=== PATIENT | female | born 1990 | race Caucasian/White ===

== ENCOUNTER 2023-01-10 18:20 | Emergency (ER) | payer OTHER, SELFPAY ==
[2023-01-10] VITALS (12 sets, daily range): BP systolic 106–125; BP diastolic 59–72; PULSE 55–64; RESP 16; TEMP 36.5; O2SAT 96–100; BMI 25.0
--- NOTE | 2023-01-10 18:48 | CRLHL7_ITS ---
For Patients: As a result of the Century Cures Act, medical imaging exams and procedure reports are released immediately into your electronic medical record. You may view this report before your referring provider. If you have questions, please contact your health care provider. Indication: Chest pain. Technique: Chest 2 views. Comparison: None available. FINDINGS: The cardiomediastinal silhouette size is normal. There is no focal pulmonary opacity, pleural effusion or pneumothorax. The visualized osseous structures are unremarkable for age. Impression: No acute cardiopulmonary abnormality. Dictated by Pam Meade MD @ 01/10/2023 7:47:39 PM (Electronically Signed)
--- NOTE | 2023-01-10 18:54 | ED_ITS ---
HPI - Chest Pain General Date Seen: 01/10/23 Chief Complaint: Chest Pain Stated Complaint: Pain in L side of chest and ribcage Time Seen by Provider: 01/10/23 18:22 Source: patient and family Mode of arrival: ambulatory Limitations: no limitations History of Present Illness HPI narrative: Patient is a very nice 32-year-old female presents here for evaluation of chest pain that she has had on her left side of her chest, she has had this since morning this morning at approximately 8:30 a.m. and developed while she was driving her car to work. She develops that intermittently, the longus. It has been continuous has been 5 minutes, she developed sharp with some radiation to her back, she does not really know what brings it on sometimes movement, pressure does seem to help this over the area, this did not come on with a coughing jag, she feels some mild shortness of breath with this. Has had non of her tachycardia which is another issue that she has. She does have a history of sinus tachycardia with the most rapid rate being 120, since she has been on beta-blockers this is helped considerably. She has no personal other history of any heart issues. Does not feel like she is going to pass out, no nausea vomiting, eating and drinking otherwise normally. No history of pulmonary emboli, DVTs, no family history of such or blood dyscrasias. She does smoke, occasionally mostly vapes, no use of any illicit drugs, denies hypertension, hyperlipidemia, diabetes, does have a family history of coronary artery disease in her elderly family, complaint: chest pain Onset (ago): hour(s) Timing of current episode: episodic Prior episodes: No Pain location: left chest Pain radiation: left scapula Quality: sharp Relieving factors: nothing Treatment prior to arrival: none Risk Factors Thoracic aortic dissection risk factors: none Related Data On Oral Contraceptives: No Home Medications Medication Instructions Recorded Confirmed fluticasone propion-salmeterol inhalation 01/10/23 metoprolol tartrate 50 mg tablet 50 mg PO BID 01/10/23 01/10/23 Allergies Allergy/AdvReac Type Severity Reaction Status Date / Time codeine Allergy Unknown Verified 01/10/23 18:33 Review of Systems Status of ROS Reports: 10 or more systems reviewed and unremarkable except as noted in History and below Exam Narrative Exam Narrative: Patient is seen in room 6, she is in no apparent distress, speaking to me normally, she currently does not have chest pain, pupils are equal round reactive to light there is no scleral icterus redness TMs are normal oropharynx normal, neck is supple, full range of motion, JVP is flat, carotid upstrokes are equal bilaterally cranial nerves 3-12 are normal, her chest is good air entry bilaterally with absence of wheezes crackles noted. No signs of respiratory distress, heart sounds no clicks murmurs or gallops are noted, her abdomen is scaphoid, there is no tenderness to palpation, no right upper quadrant or any organomegaly is seen. Or felt. Bowel sounds are normal no CVA tenderness, no bruising noted over back, her thoracic region palpates normally. Lower extremity show no pitting edema or swelling, normal muscle bulk noted bilaterally. Pulses are normal Const Vital Signs, click to edit/add: Vital Signs - 24 hr 01/10/23 18:27 01/10/23 18:40 01/10/23 18:41 Temperature 97.7 F Pulse Rate 61 60 Pulse Rate [Pulse Oximeter] 62 Respiratory Rate 16 Blood Pressure 125/72 Blood Pressure [Right Upper Arm] 106/59 L Pulse Oximetry 96 100 100 Oxygen Delivery Method Room Air 01/10/23 18:45 01/10/23 19:00 01/10/23 19:02 Temperature Pulse Rate 64 58 L 60 Pulse Rate [Pulse Oximeter] Respiratory Rate Blood Pressure 118/59 L Blood Pressure [Right Upper Arm] Pulse Oximetry 100 100 100 Oxygen Delivery Method 01/10/23 19:15 Temperature Pulse Rate 59 L Pulse Rate [Pulse Oximeter] Respiratory Rate Blood Pressure Blood Pressure [Right Upper Arm] Pulse Oximetry 100 Oxygen Delivery Method Course Course Hospital Course: discussed with the patient, her chest x-ray by my review looks normal, waiting radiological over-read. His D-dimer was negative, troponin negative, in the setting that she has had this chest pain now intermittently for almost 12 hours. Remainder of her blood tests are normal, I do believe this is likely musculoskeletal the other possibility would be a touch of pleurisy, with the tends to be more with breathing. I do not think this is pulmonary embolism is her PERC score is very low. At this point I think discharge would be indicated, use of ibuprofen, and I discussed use of Toradol with her. Vital Signs Vital signs: Initial Vital Signs Temperature 97.7 F 01/10/23 18:27 Temperature Source Temporal Artery Scan 01/10/23 18:27 Pulse Rate 62 01/10/23 18:27 Respiratory Rate 16 01/10/23 18:27 Blood Pressure 106/59 L 01/10/23 18:27 Blood Pressure Mean 74 01/10/23 18:27 Blood Pressure Position Sitting 01/10/23 18:27 Pulse Oximetry 96 01/10/23 18:27 Oxygen Delivery Method Room Air 01/10/23 18:27 Vital Signs Temperature 97.7 F 01/10/23 18:27 Pulse Rate 62 01/10/23 18:27 Respiratory Rate 16 01/10/23 18:27 Blood Pressure 106/59 L 01/10/23 18:27 Pulse Oximetry 96 01/10/23 18:27 Oxygen Delivery Method Room Air 01/10/23 18:27 Temperature 97.7 F 01/10/23 18:27 Pulse Rate 59 L 01/10/23 19:15 Respiratory Rate 16 01/10/23 18:27 Blood Pressure 118/59 L 01/10/23 19:02 Pulse Oximetry 100 01/10/23 19:15 Oxygen Delivery Method Room Air 01/10/23 18:27 MDM - Chest Pain MDM Narrative Medical decision making narrative: During the evaluation of this patient I considered multiple differential diagnosis is. The life-threatening differential diagnosis include coronary disease/[place], pulmonary embolism, pneumothorax, pneumonia, and aortic dissection. Other differential diagnosis included but were not limited to pericarditis, myocarditis, chest wall pain, GERD, esophageal rupture, rib fracture contusion, pleurisy, as well as other etiologies. Medical Records Data Attestation: I reviewed the patient's medical records. Lab Data Attestation: I reviewed the patient's lab results. Labs: Lab Results 01/10/23 01/10/23 Range/Units 18:50 19:00 WBC 7.60 (4.50-11.00) K/uL RBC 4.48 (4.00-5.20) m/uL Hgb 13.0 (12.0-16.0) gm/dL Hct 39.5 (33.0-51.0) % MCV 88 (80-100) fL MCH 29 (26-34) pg MCHC 33 (32-36) gm/dL RDW Coeff of Lalo 11.7 (11.5-15.5) % Plt Count 245 (140-440) K/uL Neut % (Auto) 61.1 (42.0-72.0) % Lymph % (Auto) 28.4 (20-44) % [place] % (Auto) 8.2 (0.0-11.0) % Eos % (Auto) 1.7 (0.0-7.0) % Baso % (Auto) 0.3 (0.0-3.0) % Neut # (Auto) 4.65 (1.7-7.0) K/uL Lymph # (Auto) 2.16 (0.90-2.90) K/uL [place] # (Auto) 0.60 (0.00-0.90) K/UL Eos # (Auto) 0.13 (0.00-0.50) K/uL Baso # (Auto) 0.02 (0.00-0.30) K/uL Abs Immat Gran (auto) 0.02 (0.00-0.30) K/uL Imm/Tot Granulo (auto) 0.3 % INR 0.98 (0.91-1.10) APTT 31 (23-33) Seconds D-Dimer Quant (PE/DVT) 0.47 (0.00-0.50) ug/ml Sodium 138 (135-149) mmol/L Potassium 3.7 (3.6-5.1) mmol/L Chloride 104 (96-114) mmol/L Carbon Dioxide 25 (20-32) mmol/L BUN 12 (5-24) mg/dL Creatinine 0.8 (0.5-1.5) mg/dL Estimated Creat Clear 91.68 Estimated GFR 101 ml/min Glucose 81 (60-115) mg/dL Calcium 9.0 (8.4-10.6) mg/dL POC Troponin I 0.00 L (0.01-0.04) ng/ml Imaging Data Chest x-ray: Attestation: I have reviewed the pertinent imaging results. My impression: Chest x-ray is negative for pneumothorax or acute findings per my review. Radiological over-read pending ECG Data Attestation: I personally reviewed and interpreted this ECG as follows: ECG interpretation date: 01/10/23 Prior ECG tracings: not available for review Interpretation: EKG shows normal sinus rhythm, sinus bradycardia [address] wave changes, normal intervals, Discharge Plan Discharge Clinical Impression: Chest pain Patient Disposition: Home w/ Parent or Adult Condition: Stable Instructions: Chest Pain (DC) Additional Instructions: Laboratory tests are negative, this is very reassuring, I wonder if this is more of a musculoskeletal, muscle issue, use of nonsteroidal anti-inflammatory drugs such as Aleve ibuprofen, are suggested, as I think there may be a touch of pleurisy. Follow-up with primary care if ongoing symptoms, Activity Level: Light activity Prescriptions: No Action metoprolol tartrate 50 mg tablet 50 mg PO BID fluticasone propion-salmeterol [Advair HFA] inhalation Stand Alone Forms: [email or web address] Info Instructions
[2023-01-10 19:12] LABS: Basophils Absolute Auto 0.02 K/uL (0.00-0.30); Basophils Percent Auto 0.3 % (0.0-3.0); Eosinophils Absolute Auto 0.13 K/uL (0.00-0.50); Eosinophils Percent Auto 1.7 % (0.0-7.0); Hematocrit 39.5 % (33.0-51.0); Immature Granulocytes Abs Auto 0.02 K/uL (0.00-0.30); Immature Granulocytes Pct Auto 0.3 %; Lymphocytes Absolute Auto 2.16 K/uL (0.90-2.90); Lymphocytes Percent Auto 28.4 % (20-44); Mean Corpuscular HGB Conc 33 gm/dL (32-36); Mean Corpuscular Hemoglobin 29 pg (26-34); Mean Corpuscular Volume 88 fL (80-100); Monocytes Percent Auto 8.2 % (0.0-11.0); Neutrophils Absolute Auto 4.65 K/uL (1.7-7.0); Neutrophils Percent Auto 61.1 % (42.0-72.0); Platelet Count* 245 K/uL (140-440); RDW Coefficient of Variation % 11.7 % (11.5-15.5); Red Blood Count 4.48 m/uL (4.00-5.20)
[2023-01-10] MEDS: 0.9 % SODIUM CHLORIDE 1000 ml 1,000 ML IV (19:14)
[2023-01-10 19:23] LABS: Slide Review Reflex No
[2023-01-10 19:26] LABS: Chloride* 104 mmol/L (96-114); Potassium* 3.7 mmol/L (3.6-5.1); Sodium* 138 mmol/L (135-149)
[2023-01-10 19:28] LABS: Creatinine* 0.8 mg/dL (0.5-1.5); Est. Creatinine Clearance* 91.68; Estimated Glomerular Filt Rate 101 ml/min
[2023-01-10 19:29] LABS: Blood Urea Nitrogen* 12 mg/dL (5-24); Carbon Dioxide* 25 mmol/L (20-32); Glucose* 81 mg/dL (60-115); INR 0.98 (0.91-1.10); Prothrombin Time 13.6 Seconds
[2023-01-10 19:30] LABS: Partial Thromboplastin Time* 31 Seconds (23-33)
[2023-01-10 19:32] LABS: D Dimer Quantitative* 0.47 ug/ml (0.00-0.50)
[2023-01-10] MEDS: KETOROLAC 30 MG/ML inj IVP (19:45)
== END 2023-01-10 20:15 | disposition home or self-care (01) ==
PROVIDERS: Emergency Provider Family Medicine
DX: R07.9 Chest pain, unspecified (principal)
CPT/HCPCS: 36415; 71046; 80048; 84484; 85025; 85379; 85610; 85730; 93005; 96374; 99284; J1885; J7030

== ENCOUNTER 2023-04-05 | Emergency (ER) | payer OTHER, SELFPAY ==
[2023-04-05 00:05] VITALS: BP 100/68; PULSE 103; RESP 16; TEMP 36.4; O2SAT 96
--- NOTE | 2023-04-05 00:15 | CRLHL7_ITS ---
For Patients: As a result of the Century Cures Act, medical imaging exams and procedure reports are released immediately into your electronic medical record. You may view this report before your referring provider. If you have questions, please contact your health care provider. INDICATION: Pain in mid to lower abdomen and bilateral groin TECHNIQUE: CT abdomen and pelvis with 79 cc Isovue 370 contrast. COMPARISON: None FINDINGS: Lower chest: Unremarkable. Liver: Unremarkable. Spleen: Unremarkable. Pancreas: Unremarkable. Gallbladder and bile ducts: Moderate distention of the gallbladder. Adrenal glands: Unremarkable. Kidneys: Unremarkable. No kidney or ureteral stones and no hydronephrosis. GI tract: Large amount of stool in the right colon. Appendix is normal. Vascular structures: Unremarkable. Lymph nodes: Unremarkable. Miscellaneous: Unremarkable. No free air or significant free fluid. Pelvic Organs: Two cysts in the left adnexa, the largest measuring 1.8 x 1.1 cm. A single cyst in the right adnexa measures 2.5 x 2.6 cm. There is a small to moderate amount free-fluid in the pelvis measuring 25 Hounsfield units in density. Bones: Unremarkable for age. IMPRESSION: Bilateral adnexal cysts, likely ovarian in origin. Small to moderate amount of high-density free fluid in the pelvis concerning for hemorrhage. Recommend pelvic ultrasound for further evaluation. Moderate distention of the gallbladder. If there is right upper quadrant pain, consider right upper quadrant ultrasound for further evaluation. Large amount of stool in the right colon. Please note that all CT scans at this facility use dose modulation, iterative reconstruction, and/or weight-based dosing when appropriate to reduce radiation dose to as low as reasonably achievable. Dictated by Dea Valenzuela MD @ 04/05/2023 1:57:20 AM (Electronically Signed)
--- NOTE | 2023-04-05 00:17 | ED.ABDPAIN ---
HPI - Abdominal Pain General Time Seen by Provider: 00:17 Date Seen: 04/05/23 Chief Complaint: Abdominal Pain Stated Complaint: Abdominal Pain Time Seen by Provider: 04/05/23 00:15 Source: patient, RN notes reviewed and old records reviewed Mode of arrival: ambulatory Limitations: no limitations History of Present Illness HPI narrative: 33-year-old female who presents with spouse with abdominal pain and nausea. Patient said she started having lower abdominal pain that now is working its way to the mid abdomen this evening about 2 hours prior to coming the emergency department, started shortly after intercourse. She denies urinary symptoms, diarrhea, or constipation. Nausea but no vomiting. Last period was week ago, does not think she is . No prior surgeries. History of an ovarian cyst about a year ago. Related Data Home Medications Medication Instructions Recorded Confirmed fluticasone propion-salmeterol inhalation 01/10/23 metoprolol tartrate 50 mg tablet 50 mg PO BID 01/10/23 01/10/23 Allergies Allergy/AdvReac Type Severity Reaction Status Date / Time codeine Allergy Unknown Verified 04/05/23 01:44 PFSH PFS Social History Smoking Status: Never smoker How often do you have a drink containing alcohol: monthly or less AUDIT-C Alcohol total score: 1 Non-prescribed substance use: denies use Exam Narrative: Exam Narrative: General: Well-developed and well-nourished, appears uncomfortable Head: Atraumatic and normocephalic Eyes: Pupils are equal reactive, extraocular motions intact, conjunctiva clear ENT: External nose and ears are normal, posterior pharynx without erythema or exudate Neck: No midline cervical tenderness, full spontaneous range of motion the neck, trachea midline, no adenopathy Heart: tachycardic rate and regular rhythm no murmurs or thrills Lungs: Clear to auscultation bilaterally without wheezes or crackles Abdomen: Diffuse tenderness Musculoskeletal: No tenderness, deformity, or edema Neurologic: Awake, alert, and oriented x3, no gross focal neurologic deficits, cranial nerves intact as tested Psych: Mood and affect are appropriate Skin: No rashes Const: Vital Signs, click to edit/add: Vital Signs - 24 hr 04/05/23 00:05 Temperature 97.6 F Pulse Rate [Left P ulse Oximeter] 103 H Respiratory Rate 16 Blood Pressure [Ri ght Upper Arm] 100/68 Pulse Oximetry 96 Oxygen Delivery Me thod Room Air Course Course ED Course: patient seen examined, prior records reviewed. Patient presents with low abdominal pain number generalized after intercourse tonight. Concern for possible perforation given diffuse tenderness on exam, also consider ovarian torsion or ruptured ovarian cyst. Labs are ordered along with CT scan, anticipate possible need for ultrasound as well to evaluate for ovarian pathology. Dilaudid IV is ordered for pain. Reevaluation(s) Time of Reevaluation #1: 01:42 Reevaluation #1: patient recheck, she appears more comfortable than says pain is tolerable although still present. Labs independently interpreted by me demonstrate leukocytosis, basic panel, hepatic panel, and lipase are normal, test is negative. CT scan independently interpreted by me demonstrates moderate free fluid in the pelvis with what looks to be a ovarian cyst on the right, possibly ruptured or hemorrhagic. Also moderate volume stool throughout, no free air to suggest bowel perforation. Will Time of Reevaluation #2: 04:02 Reevaluation #2: Ultrasound does demonstrate cysts on both ovaries, possibly hemorrhagic cyst on the right. Patient remains comfortable and stable for discharge. Vital Signs Vital signs: Initial Vital Signs Temperature 97.6 F 04/05/23 00:05 Temperature Source Temporal Artery Scan 04/05/23 00:05 Pulse Rate 103 H 04/05/23 00:05 Pulse Rhythm Regular 04/05/23 00:05 Respiratory Rate 16 04/05/23 00:05 Blood Pressure 100/68 04/05/23 00:05 Blood Pressure Mean 78 04/05/23 00:05 Blood Pressure Position Sitting 04/05/23 00:05 Pulse Oximetry 96 04/05/23 00:05 Oxygen Delivery Method Room Air 04/05/23 00:05 Vital Signs Temperature 97.6 F 04/05/23 00:05 Pulse Rate 103 H 04/05/23 00:05 Respiratory Rate 16 04/05/23 00:05 Blood Pressure 100/68 04/05/23 00:05 Pulse Oximetry 96 04/05/23 00:05 Oxygen Delivery Method Room Air 04/05/23 00:05 Temperature 97.6 F 04/05/23 00:05 Pulse Rate 103 H 04/05/23 00:05 Respiratory Rate 16 04/05/23 00:05 Blood Pressure 100/68 10/18/23 00:05 Pulse Oximetry 96 04/05/23 00:05 Oxygen Delivery Method Room Air 04/05/23 00:05 MDM - Abdominal Pain Lab Data Labs: Lab Results 04/05/23 04/05/23 Range/Units 00:30 03:30 WBC 15.42 H (4.50-11.00) K/uL RBC 4.87 (4.00-5.20) m/uL Hgb 13.9 (12.0-16.0) gm/dL Hct 41.9 (33.0-51.0) % MCV 86 (80-100) fL MCH 29 (26-34) pg MCHC 33 (32-36) gm/dL RDW Coeff of Lalo 11.7 (11.5-15.5) % Plt Count 254 (140-440) K/uL Neut % (Auto) 86.9 H (42.0-72.0) % Lymph % (Auto) 8.1 L (20-44) % [place] % (Auto) 4.4 (0.0-11.0) % Eos % (Auto) 0.4 (0.0-7.0) % Baso % (Auto) 0.1 (0.0-3.0) % Neut # (Auto) 13.40 H (1.7-7.0) K/uL Lymph # (Auto) 1.20 (0.90-2.90) K/uL [place] # (Auto) 0.70 (0.00-0.90) K/UL Eos # (Auto) 0.10 (0.00-0.50) K/uL Baso # (Auto) 0.00 (0.00-0.30) K/uL Abs Immat Gran (auto) 0.00 (0.00-0.30) K/uL Imm/Tot Granulo (auto) 0.1 % Sodium 138 (135-149) mmol/L Potassium 3.3 L (3.6-5.1) mmol/L Chloride 103 (96-114) mmol/L Carbon Dioxide 25 (20-32) mmol/L Anion Gap 10 (7-15) mEq/L BUN 13 (5-24) mg/dL Creatinine 0.7 (0.5-1.5) mg/dL Estimated GFR 118 ml/min Glucose 89 (60-115) mg/dL Calcium 9.3 (8.4-10.6) mg/dL Magnesium 1.8 (1.5-2.6) mg/dL Total Bilirubin 0.6 (0.1-1.5) mg/dL Direct Bilirubin 0.0 (0.0-0.5) mg/dL AST 26 (12-35) U/L ALT 12 (4-35) U/L Alkaline Phosphatase 76 (40-150) U/L Total Protein 7.5 (6.0-8.3) g/dL Albumin 4.6 (3.3-5.0) g/dL Lipase 61 (23-300) U/L HCG, Qual Negative (Negative) Urine Color Yellow (Yellow) Urine Appearance Clear (Clear) Urine pH 5.0 (5.0-8.5) Ur Specific [place] <= 1.005 (1.000-1.030) Urine Protein Negative (Negative) Urine Glucose (UA) Negative (Negative) Urine Ketones 2+ A (Negative) Urine Blood Trace-intact A (Negative) Urine Nitrite Negative (Negative) Urine Bilirubin Negative (Negative) Urine Urobilinogen 0.2 (0.2-1.0) Ur Leukocyte Esterase Negative (Negative) Urine RBC 0-2 (0-2) Urine WBC 0-2 (0-5) Ur Squamous Epith Cells Few (None-Few) Urine Bacteria None (None) Blood Type O Positive Antibody Screen NEGATIVE Discharge Plan Discharge Clinical Impression: Hemorrhagic cyst of right ovary Patient Disposition: Home, Self-Care Condition: Stable Instructions: Ovarian Cyst (ED) Additional Instructions: Take Tylenol ibuprofen for pain, take oxycodone for severe pain. Follow-up with your primary care doctor or with gynecology in 1 month Activity Level: Activity as Tolerated Discharge Diet: Regular Prescriptions: No Action metoprolol tartrate 50 mg tablet 50 mg PO BID fluticasone propion-salmeterol [Advair HFA] inhalation Follow Up/Referrals: Provider,Not a Local [Primary Care Provider] - Stand Alone Forms: [employer] Info Instructions
[2023-04-05 00:41] LABS: Basophils Percent Auto 0.1 % (0.0-3.0); Eosinophils Percent Auto 0.4 % (0.0-7.0); Hematocrit 41.9 % (33.0-51.0); Hemoglobin* 13.9 gm/dL (12.0-16.0); Immature Granulocytes Pct Auto 0.1 %; Lymphocytes Percent Auto 8.1 % (20-44); Mean Corpuscular HGB Conc 33 gm/dL (32-36); Mean Corpuscular Hemoglobin 29 pg (26-34); Mean Corpuscular Volume 86 fL (80-100); Monocytes Percent Auto 4.4 % (0.0-11.0); Neutrophils Percent Auto 86.9 % (42.0-72.0); Platelet Count* 254 K/uL (140-440); RDW Coefficient of Variation % 11.7 % (11.5-15.5); Red Blood Count 4.87 m/uL (4.00-5.20); Slide Review Reflex No; White Blood Count* 15.42 K/uL (4.50-11.00)
[2023-04-05] MEDS: ONDANSETRON 2 MG/ML inj 4 MG IVP (00:42)
[2023-04-05] MEDS: HYDROmorphone 0.5 mg/0.5 ml inj IVP ×2 (00:42→02:08)
[2023-04-05] MEDS: 0.9 % SODIUM CHLORIDE 1000 ml 1,000 ML IV (00:42)
[2023-04-05 00:57] LABS: Chloride* 103 mmol/L (96-114); Potassium* 3.3 mmol/L (3.6-5.1); Sodium* 138 mmol/L (135-149)
[2023-04-05 00:58] LABS: Albumin* 4.6 g/dL (3.3-5.0); HCG Qualitative Serum* Negative (Negative)
[2023-04-05 01:00] LABS: Anion Gap 10 mEq/L (7-15); Calcium* 9.3 mg/dL (8.4-10.6); Carbon Dioxide* 25 mmol/L (20-32); Creatinine* 0.7 mg/dL (0.5-1.5); Estimated Glomerular Filt Rate 118 ml/min; Glucose* 89 mg/dL (60-115)
[2023-04-05 01:01] LABS: Bilirubin Total* 0.6 mg/dL (0.1-1.5); Total Protein* 7.5 g/dL (6.0-8.3)
[2023-04-05 01:02] LABS: Alanine Aminotransferase* 12 U/L (4-35); Alkaline Phosphatase* 76 U/L (40-150); Aspartate Amino Transferase* 26 U/L (12-35); Lipase* 61 U/L (23-300); Magnesium* 1.8 mg/dL (1.5-2.6)
[2023-04-05 01:15] LABS: Blood Urea Nitrogen* 13 mg/dL (5-24)
--- NOTE | 2023-04-05 01:40 | CRLHL7_ITS ---
For Patients: As a result of the Century Cures Act, medical imaging exams and procedure reports are released immediately into your electronic medical record. You may view this report before your referring provider. If you have questions, please contact your health care provider. INDICATION: Pelvic pain, post coital abdominal pain TECHNIQUE: Ultrasound pelvis transabdominal and transvaginal. Endovaginal imaging was performed to better visualize the endometrium and ovaries. Real-time walker scale sonographic images with spectral and color Doppler imaging of the ovaries were obtained. COMPARISON: CT 04/05/2023 FINDINGS: Uterus: 8.8 x 5 x 3.8 cm. Normal echotexture of the myometrium noted with no masses are seen. Endometrium: 12 mm. No sign of endometrial mass or fluid present. Right ovary: 4.8 x 3 x 3.3 cm. There is a cystic lesion within the right ovary measuring 3 cm in diameter with several mural nodules noted. The largest mural nodule measuring 2 cm. Normal arterial and venous blood flow seen in the right ovary. Left ovary: 3.8 x 2.4 x 2.4 cm. There are 2 lesions with low level internal echoes present within the left ovary measuring up to 2 cm. A simple cyst is present in the left ovary measuring 1.5 cm. Normal arterial and venous blood flow seen in the left ovary. Cul-de-sac: Moderate fluid is present within the cul-de-sac. IMPRESSIONS: 1. Moderate fluid is present within the cul-de-sac. 2. There is a cystic lesion within the right ovary measuring 3 cm in diameter with several mural nodules noted. The largest mural nodule measuring 2 cm. The largest lesion may represent hemorrhage within a cyst and retracted clot. Evaluation with outpatient pelvic MRI is recommended to exclude an ovarian neoplasm. Dictated by Lee Henriquez MD @ 04/05/2023 3:50:17 AM Dictated by: Lee Henriquez MD @ 04/05/2023 03:50:28 (Electronically Signed)
[2023-04-05 02:30] VITALS: BP 111/65; PULSE 76; RESP 16; O2SAT 99
[2023-04-05 03:33] LABS: Appearance Urine Clear (Clear); Bilirubin Urine Negative (Negative); Blood Urine Trace-intact (Negative); Color Urine Yellow (Yellow); Glucose Urine Negative (Negative); Ketones Urine 2+ (Negative); Leukocyte Esterase Urine Negative (Negative); Nitrite Urine Negative (Negative); Protein Urine Negative (Negative); Specific Gravity Urine <= 1.005 (1.000-1.030); Urobilinogen Urine 0.2 (0.2-1.0)
[2023-04-05 03:42] LABS: RBC Urine 0-2 (0-2); Squamous Epithelial Cell Urine Few (None-Few); WBC Urine 0-2 (0-5)
== END 2023-04-05 04:24 | disposition home or self-care (01) ==
PROVIDERS: Emergency Provider Family Medicine
DX: N83.201 Unspecified ovarian cyst, right side (principal)
CPT/HCPCS: 36415; 74177; 76830; 76856; 80048; 80076; 81001; 83690; 83735; 84703; 85025; 86850; 86900; 86901; 93976; 96374; 96375; 96376; 99284; 99285; J1170; J2405; J7030; Q9967

== ENCOUNTER 2023-05-09 07:53 | Outpatient (CLI) | payer OTHER, SELFPAY | END 2023-05-09 07:54 | disposition home or self-care (01) | LOC: NFLDREF 05-12 20:42 | PROVIDERS: Visit Provider Obstetrics & Gynecology | DX: N97.9 Female infertility, unspecified (principal); Z13.220 Encounter for screening for lipoid disorders | CPT/HCPCS: 80061; 83520; 84144; 84443 ==

== ENCOUNTER 2023-05-17 07:51 | Outpatient (CLI) | payer OTHER, SELFPAY | END 2023-05-17 07:52 | disposition home or self-care (01) | LOC: NFLDREF 05-18 23:29 | PROVIDERS: Visit Provider Obstetrics & Gynecology | DX: N97.9 Female infertility, unspecified (principal) | CPT/HCPCS: 82670; 83001; 83002 ==

== ENCOUNTER 2023-05-29 07:00 | Outpatient (CLI) | payer OTHER, SELFPAY ==
--- NOTE | 2023-05-29 07:15 | CRLHL7_ITS ---
For Patients: As a result of the Century Cures Act, medical imaging exams and procedure reports are released immediately into your electronic medical record. You may view this report before your referring provider. If you have questions, please contact your health care provider. CLINICAL HISTORY: Ovarian cysts Comparison 04/05/[address] TECHNIQUE: 2D walker scale and color Doppler images were acquired of the pelvis using a transvaginal approach. FINDINGS: On transvaginal imaging, the myometrium has a normal uniform echotexture. The uterus measures 8.2 x 3.7 x 4.8 cm. The endometrial lining appears normal and measures 7.3 mm in thickness. The left ovary measures 4.2 x 2.7 x 2.7 cm in size and the right ovary measures 4.6 x 2.5 x 3.2 cm. The ovaries demonstrate normal arterial and venous blood flow on color Doppler analysis. There are no suspicious fluid collections within the cul-de-sac. Hypoechoic right ovarian cyst measures 2.2 x 1.4 x 2.4 cm. The cyst is more homogeneous compared to the prior study when it measured 2.8 x 1.8 x 3.0 cm. The solid component is no longer present. IMPRESSION: Hemorrhagic right ovarian cyst measuring 2.2 x 1.4 x 2.4 cm. This has decreased in size since the prior study and the solid like component is no longer present. Dictated by Daniel Luo MD @ 05/29/2023 11:21:06 AM (Electronically Signed)
== END 2023-05-29 07:01 | disposition home or self-care (01) ==
PROVIDERS: Visit Provider Obstetrics & Gynecology
DX: N83.209 Unspecified ovarian cyst, unspecified side (principal); N83.201 Unspecified ovarian cyst, right side
CPT/HCPCS: 76830

== ENCOUNTER 2023-06-27 08:51 | Outpatient (CLI) | payer OTHER, SELFPAY ==
--- NOTE | 2023-06-27 09:15 | CRLHL7_ITS ---
For Patients: As a result of the Cures Act, medical imaging exams and procedure reports are released immediately into your electronic medical record. You may view this report before your referring provider. If you have questions, please contact your health care provider. INDICATION: Female infertility, unspecified. TECHNIQUE: Fluoroscopically guided hysterosalpingogram performed in conjunction with Dr. Rossi. FINDINGS: Free spill of contrast from the fallopian tubes. No evidence for hydrosalpinx. Filling defects seen initially in the right cornua is an air bubble which dissipated with positional changes and additional contrast instillation. 52 seconds fluoroscopy time utilized. IMPRESSION: Patent fallopian tubes. Dictated by Noe Ray MD @ 06/27/2023 10:24:00 AM (Electronically Signed)
--- NOTE | 2023-06-27 16:03 | W.PM.GYNPROC ---
Procedure Note Time Seen by Provider: 09:30 Date of procedure: 06/27/23 Pre-op diagnosis: Infertility Post-op diagnosis: same (Patent fallopian tubes bilaterally) Procedure: Hysterosalpingogram Anesthesia: none Complications: None. Surgeon: Ericka Rossi MD Estimated blood loss (mL): 0 Pathology: none sent Condition: stable Findings: Patent fallopian tubes bilaterally. No intrauterine filling defects. Procedure Description: After obtaining verbal consent, the patient was placed in the dorsal lithotomy position on the x-ray table. An open-sided bivalve speculum was introduced into the vagina and the cervix easily visualized. The cervix and vagina were then prepped with Betadine. A balloon tipped double-lumen catheter was then gently inserted through the cervical opening. Initially, the catheter could not be passed through the internal cervical os. I used an os finder to gently dilate the internal cervical os, and then the catheter passed easily into the uterine cavity to the level of the fundus. The balloon was insufflated with 3 mL of air. The speculum was removed. The patient was repositioned in the supine position, covered, and the radiologist was called to the room. A hysterosalpingogram was then performed. A total of 12 cc of Optiray 300 water soluble contrast dye was injected through the double-lumen catheter under moderate pressure. There was immediate fill of the uterine cavity to the cornua and immediate fill of both fallopian tubes and free spillage of dye on both sides. There was a round filling defect near the right cornual a, which disappeared with repositioning of the patient and was thought to represent a small air bubble. The balloon was deflated. The catheter was removed. The patient tolerated the procedure well, though she did have moderate cramping discomfort during and just after the procedure. She was discharged to home in stable condition and to follow up as [facility].
== END 2023-06-27 08:52 | disposition home or self-care (01) ==
PROVIDERS: Visit Provider Obstetrics & Gynecology
DX: N97.9 Female infertility, unspecified (principal)
CPT/HCPCS: 58340; 74740; A4649; Q9967

== ENCOUNTER 2023-06-29 11:38 | Outpatient (CLI) | payer OTHER, SELFPAY ==
[2023-06-29 14:37] LABS: SARS PCR* Negative SARS-CoV-2 (Negative)
== END 2023-06-29 11:39 | disposition home or self-care (01) ==
PROVIDERS: PCP Nurse Practitioner Family; Visit Provider Nurse Practitioner Family
DX: J06.9 Acute upper respiratory infection, unspecified (principal)
CPT/HCPCS: 87635

== ENCOUNTER 2023-07-17 11:03 | Emergency (ER) | payer OTHER, SELFPAY ==
[2023-07-17] VITALS (32 sets, daily range): BP systolic 98–126; BP diastolic 61–88; PULSE 52–75; RESP 18; TEMP 36.4; O2SAT 90–100; BMI 22.3
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
[2023-07-17] MEDS: KETOROLAC 15 MG/ML inj IVP (11:51)
== END 2023-07-17 14:17 | disposition home or self-care (01) ==
PROVIDERS: Emergency Provider Emergency Medicine
DX: S16.1XXA Strain of muscle, fascia and tendon at neck level, initial encounter (principal); M54.9 Dorsalgia, unspecified; V49.88XA Car occupant (driver) (passenger) injured in other specified transport accidents, initial encounter
CPT/HCPCS: 71260; 72125; 72128; 72131; 74177; 81001; 81025; 96374; 99284; 99291; J1885; Q9967

== ENCOUNTER 2023-12-07 10:13 | Outpatient (CLI) | payer OTHER, SELFPAY ==
--- NOTE | 2023-12-07 11:00 | CRLHL7_ITS ---
For Patients: As a result of the Century Cures Act, medical imaging exams and procedure reports are released immediately into your electronic medical record. You may view this report before your referring provider. If you have questions, please contact your health care provider. CLINICAL HISTORY: Ovarian cyst Comparison CT 07/17/2023 TECHNIQUE: 2D walker scale and color Doppler images were acquired of the pelvis using a transvaginal approach. FINDINGS: On transvaginal imaging, the myometrium has a normal uniform echotexture. The uterus measures 8.8 x 4.1 x 5.0 cm. The endometrial lining measures 13 mm in thickness. The left ovary measures 3.9 x 2.6 x 3.4 cm in size and the right ovary measures 5.8 x 4.5 x 6.0 cm. The ovaries demonstrate normal arterial and venous blood flow on color Doppler analysis. There are no suspicious fluid collections within the cul-de-sac. Simple anechoic cyst right ovary measures 4.0 x 2.7 x 2.9 cm. Additional simple right ovarian cyst measures 3.2 x 2.8 x 2.6 cm. Hypoechoic left ovarian cyst noted measuring 2.2 x 1.5 x 1.4 cm. IMPRESSION: Simple right ovarian cysts measuring 4.0 cm and 3.2 cm. Hemorrhagic cyst left ovary measures 2.2 cm. Dictated by Daniel Luo MD @ 12/07/2023 2:49:30 PM (Electronically Signed)
== END 2023-12-07 10:14 | disposition home or self-care (01) ==
LOC: US 10:13
PROVIDERS: Visit Provider Obstetrics & Gynecology
DX: N83.209 Unspecified ovarian cyst, unspecified side (principal); N83.201 Unspecified ovarian cyst, right side
CPT/HCPCS: 76830; 87491; 87591; 93976

== ENCOUNTER 2024-04-19 09:53 | Outpatient (CLI) | payer OTHER, SELFPAY ==
--- OUTSIDE RECORDS SUMMARY | 2024-04-19 09:57 | XMS_ITS | Clinical Summary ---
Author Organization [facility] Address [address] [place] [address] Care Team Providers Care Swatch Clerk Name Role Phone Alex Sales DO Primary Care Provider [phone] Ena Ribera PA-C Unavailable Allergies Active Allergy Reactions Criticality Noted Date Comments Codeine Diarrhea 10/14/2017 Medications loratadine (CLARITIN) 10 MG tablet Take 10 mg by mouth Active albuterol (PROAIR HFA/PROVENTIL HFA/VENTOLIN HFA) 108 (90 Base) MCG/ACT inhalerIndicatio ns:Mild persistent allergic asthma Inhale 2 puffs into the lungs every 4 hours as needed for shortness of breath / dyspnea or wheezing 18 g 3 2 Active fluticasone (FLONASE) 50 MCG/ACT nasal sprayIndications :Seasonal allergic rhinitis, unspecified trigger [place] 1 spray into both nostrils daily 16 g 6 3 Active benzonatate (TESSALON) 200 MG capsuleIndicatio ns:Viral URI with cough Take 1 capsule (200 mg) by mouth 3 times daily as needed for cough 30 capsule 3 Active Additional Information Patient not taking.Reported on 11/30/2022 SUMAtriptan (IMITREX) 100 MG tabletIndication s:Intractable migraine with aura without status migrainosus TAKE 1 TABLET AT ONSET OF HEADACHE. MAY REPEAT IN 2 HOURS IF NEEDED. MAX 2 TABLETS IN 24 HOURS 10 tablet 3 3 Active fluticasone-salm eterol (ADVAIR) 250-50 MCG/ACT inhalerIndicatio ns:Mild persistent allergic asthma INHALE ONE PUFF BY MOUTH TWICE DAILY 60 each 2 4 Active sertraline (ZOLOFT) 50 MG tabletIndication s:Anxiety TAKE ONE TABLET BY MOUTH ONE TIME DAILY 90 tablet 4 Active metoprolol tartrate (LOPRESSOR) 50 MG tabletIndication s:Tachycardia TAKE ONE TABLET BY MOUTH TWICE DAILY 180 tablet 4 Active Active Problems Problem Noted Date Diagnosed Date Tachycardia 02/13/2019 Mild intermittent asthma without complication Intractable migraine with aura without status mi grainosus 02/13/2019 Depression, major, single episode, mild 02/14/20 19 Benign thyroid cyst 02/13/2019 Overview (08/04/2021): Does need u/s done 6mo-1 year per ENT, 1st one done was 12/2018 Anxiety 02/13/2019 Vocal cord dysfunction 02/13/2019 Immunizations Name Administration Dates Next Due COVID-19 MONOVALENT 12+ (Pfizer) 10/20/2020,09/17 DTAP (<7y) 01/02/1997,09/30/1992 HIB(PRP-OMP)(PedvaxHIB) 06/24/1992,09/17,1991,1990 HPV Quadrivalent 06/25/2007,02/26/2007, 7 Hepatitis B, Peds 01/02/1997,07/13/1993,09/30/18 93 Influenza (H1N1) 05/12/2009 Influenza Vaccine >6 months,quad, PF 03/08/2022, 07/08/2020,05/01/2018 MMR 01/24/2003,06/24/1992 Pneumococcal 23 valent 09/09/2014 Poliovirus, inactivated (IPV) 01/02/1997 ,09/30/1992,1991,1990 TDAP (Adacel,Boostrix) 03/24/2016,01/26/2006 Family History Medical History Relation Comments Cerebrovascular Disease Father Neuropathy Father Colon Cancer Maternal Grandmother Diabetes Maternal Grandmother Heart Disease Maternal Grandmother Heart Surgery Maternal Grandmother Pacemaker Maternal Grandmother Arrhythmia Mother Asthma Mother Myocardial Infarction Paternal Grandmother In la te 809s. Relation Status Comments Brother Alive Father Alive Maternal Grandfather Maternal Grandmother Mother Alive Paternal Grandfather Paternal Grandmother Sister Alive Social History Tobacco Use Types Packs/Day Years Used Date Smoking Tobacco: Some Days Cigarettes Smokeless Tobacco: Current Tobacco Cessation:Ready to Q uit: Not Asked; Counseling Given: Not Answered Comments:vaping only Alcohol Use Standard Drinks/Week Comments Yes 0 (1 standard drink = 0.6 oz pur e alcohol) 1-2 month Social Connection and Isolat ion Panel [NHANES] Answer Date Recorded In a typical week, how many times do you talk on the phone with family, friends, or neighbors? More than three times a week 12/24/2021 How often do you get togethe r with friends or relatives? Twice a week 12/24/2021 How often do you attend [facility] or congregational services? Never 12/24/2021 Do you belong to any clubs o r organizations such as lutheran groups, unions, fraternal or athletic groups, or school groups? No 12/24/2021 Attends Club or Organization Meetings Not on arleen e 12/24/2021 Are you , , di vorced, , never , or living with a partner? 12/24/2021 AUDIT-C Answer Date Recorded Q1: How often do you have a drink containing alc ohol? Monthly or less 12/24/2021 Q2: How many drinks containi ng alcohol do you have on a typical day when you are drinking? 1 or 2 12/24/2021 Q3: How often do you have si x or more drinks on one occasion? Never 12/24/2021 Overall Financial Resource Strain (CARDIA) Answe r Date Recorded How hard is it for you to pa y for the very basics like food, housing, medical care, and heating? Not hard at all 12/24/2021 PHQ-2 Answer Date Recorded PHQ-2 Score 1 11/30/2022 [facility] - Occupational Stress Questionnaire Answer Date Recorded Do you feel stress - tense, restless, nervous, or anxious, or unable to sleep at night because your mind is troubled all the time - these days? To some extent 12/24/2021 Exercise Vital Sign Answer Date Recorde d On average, how many days pe r week do you engage in moderate to strenuous exercise (like a brisk walk)? 0 days 12/24/2021 On average, how many minutes do you engage in exercise at this level? 0 min 12/24/2021 Hunger Vital Sign Answer Date Recorded Within the past 12 months, y ou worried that your food would run out before you got the money to buy more. Never true 12/25/19 22 Within the past 12 months, t he food you bought just didn't last and you didn't have money to get more. Never true 12/24/2021 PRAPARE - Transportation Answer Date Re corded In the past 12 months, has l ack of transportation kept you from medical appointments or from getting medications? No 01/2022 In the past 12 months, has l ack of transportation kept you from meetings, work, or from getting things needed for daily living? No 12/24/2021 Housing Stability Vital Sign Answer Harshal e Recorded In the last 12 months, was t here a time when you were not able to pay the mortgage or rent on time? No 12/24/2021 In the last 12 months, how many places have you lived? 1 12/24/2021 In the last 12 months, was t here a time when you did not have a steady place to sleep or slept in a half-way (including now)? 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 Not on file Not on arleen e Last Filed Vital Signs Vital Sign Reading Time Taken Comments Blood Pressure 107/71 10/19/2022 5:09 PM CDT Pulse 77 10/19/2022 5:09 PM CDT Temperature 36.7 ??C (98.1 ??F) 10/19/2022 5:09 PM CD T Respiratory Rate 14 10/19/2022 5:09 PM CDT Oxygen Saturation 98% 10/19/2022 5:09 PM CDT Inhaled Oxygen Concentration - - Weight 69.4 kg (153 lb) 10/19/2022 5:09 PM CDT Height 162.6 cm (5' 4) 10/19/2022 5:09 PM CDT Body Mass Index 26.26 10/19/2022 5:09 PM CDT Plan of Treatment Health Maintenance Due Date Last Done Comments DEPRESSION ACTION PLAN 1991 Pneumococcal Vaccine: Pediatrics (0 to 5 Years) and At-Risk Patients (6 to 64 Years) (2 of 2 - PCV) 09/10/2015 09/09/2014 ANNUAL REVIEW OF HM ORDERS 12/31/2022 12/31/2021 ASTHMA ACTION PLAN 12/31/2022 12/31/2021 YEARLY PREVENTIVE VISIT 12/31/2022 12/31/2021, 07/08 ASTHMA CONTROL TEST 04/21/2023 10/19/2022, 03/08/2022, 02/07/2022, Additional history exists PHQ-9 06/01/2023 11/30/2022, 08/2022, 10/19/2022, Additional history exists NICOTINE/TOBACCO CESSATION COUNSELING Q 1 YR 10/20/2023 10/19/2022 COVID-19 Vaccine ( season) 2024 10/20/2020, 10/01/2020 INFLUENZA VACCINE (#1) 2024 , 07/08/2020, 05/01/2018, Additional history exists DTAP/TDAP/TD IMMUNIZATION (5 - Td or Tdap) 03/24/2026 03/24/2016, 01/26/2006, 01/02/1997, Additional history exists HPV TEST 12/31/2026 12/31/2021 PAP 12/31/2026 12/31/2021, 100 11/2015, 02/18/2015, Additional history exists ADVANCE CARE PLANNING 01/02/2027 01/02/2022 RSV VACCINE (1 - 1-dose 75+ series) 2066 HEPATITIS B IMMUNIZATION Completed 997, 07/13/1993, 09/30/1992 HPV IMMUNIZATION Completed 06/25/2007, 03/2007, 12/25/2006 HEPATITIS C SCREENING Discontinued HIV SCREENING Discontinued MENINGITIS IMMUNIZATION Aged Out No l onger eligible based on patient's age to complete this topic RSV MONOCLONAL ANTIBODY Aged Out No l onger eligible based on patient's age to complete this topic Procedures Procedure Name Priority Date/Time Associated Diagnosis Comments GYNECOLOGIC CYTOLOGY Routine 12/31/2021 7:21 AM CDT Cervical cancer screening HPV HIGH RISK TYPES DNA CERVICAL Routine 12/31/2021 7:21 AM CDT Cervical cancer screening from Last 3 Months or Most Recently Relevant to Health Maintenance Results * Pap Screen with HPV - recommended age 30 - 65 years (12/31/2021 7:21 AM CDT) Interpretation Negative for Intraepithelial Lesion or Malignancy (NILM) 01/04/2022 2:01 PM CDT [facility] Comment Papanicolaou Test Limitations: Cervical cytology is a screening test with limited sensitivity, and regular screening is critical for cancer prevention. Pap tests are primarily effective for the diagnosis/prevent ion of squamous cell carcinoma, not adenocarcinoma or other cancers. 01/04/2022 2:01 PM CDT [facility] Specimen Adequacy Satisfactory for evaluation, endocervical/bates sformation zone component present 01/04/2022 2:01 PM CDT [facility] Clinical Information none 01/04/2022 2:01 PM CDT [facility] LMP/Menopause Date 12/15/2021 01/04/2022 2:01 PM CDT [facility] Reflex Testing Yes regardless of result 01/04/2022 2:01 PM CDT [facility] Previous Abnormal? No 01/04/2022 2:01 PM CDT [facility] Performing Labs The technical component of this testing was completed at [facility] 01/04/2022 2:01 PM CDT [facility] Brushing CERVIX UTERI STRUCTURE / Unknown 12/31/2021 7:21 AM CDT 12/31/2021 8:30 AM CDT Alex Sales DO LAB - SAMINA AP Final Result [facility] Specialty Lab [address] [facility] [address], [address] [place] [id number], [facility] [phone] * HPV High Risk Types DNA Cervical (12/31/2021 7:21 AM CDT) Other HR HPV Negative Negative 01/06/2022 2:18 PM CDT [facility] HPV16 DNA Negative Negative 01/06/2022 2:18 PM CDT [facility] HPV18 DNA Negative Negative 01/06/2022 2:18 PM CDT [facility] FINAL DIAGNOSIS This patient's sample is negative for HPV DNA. This test was developed and its performance characteristics determined by the [facility], [facility]. It has not been cleared or approved by the FDA. The laboratory is regulated under CLIA as qualified to perform high-complexity testing. This test is used for clinical purposes. It should not be regarded as investigational or for research. METHODOLOGY: The Angle Cecelia 4800 system uses automated extraction, simultaneous amplification of HPV (L1 region) and beta-globin, followed by real time detection of fluorescent labeled HPV and beta globin using specific oligonucleotide probes. The test specifically identified types HPV 16 DNA and HPV 18 DNA while concurrently detecting the rest of the high risk types (31, 33, 35, 39, 45, 51, 52, 56, 58, 59, 66 or 68). COMMENTS: This test is not intended for use as a screening device for woman under age 30 with normal cervical cytology. Results should be correlated with cytologic and histologic findings. Close clinical followup is recommended. 01/06/2022 2:18 PM CDT [facility] Brushing CERVIX UTERI STRUCTURE / Unknown Non-blood Collection / Unknown 12/31/2021 7:21 AM CDT 01/05/2022 8:45 AM CDT Alex Sales DO LAB - BLOOD ORDERABLES Final Re sult [facility] [address], [address] [place] [address], [facility] [phone] from Last 3 Months or Most Recently Relevant to Health Maintenance Care Teams Swatch Clerk Relationship Specialty [place] [address] [place] [address] PCP - General Family Medicine 12/31/21 Ena Ribera PA-C [address] [place] [address] Assigned PCP 07/13/23
--- OUTSIDE RECORDS SUMMARY | 2024-04-19 09:57 | XMS_ITS | Referral Summary ---
Author Organization [facility] Address [address] [place] [address] Care Team Providers Care Administrative Support Technician Name Role Phone Alex Sales DO Primary Care Provider [phone] Ena Ribera PA-C Unavailable Allergies Active Allergy [...] nasal sprayIndications :Seasonal allergic rhinitis, unspecified trigger [place] 1 spray into both nostrils daily 16 [...] inactivated (IPV) 01/02/1997 ,09/30/1992,1991,1990 TDAP (Adacel,Boostrix) 03/24/2016,01/26/2006 Social History Tobacco Use Types Packs/Day Years [...] week 12/24/2021 How often do you attend chur or evangelical services? Never 12/24/2021 Do you belong to any clubs o r organizations such as pentecostal groups, unions, fraternal or athletic groups, or [...] Answer Date Recorded PHQ-2 Score 1 11/30/2022 [facility] - Occupational Stress [...] place to sleep or slept in a long-term (including now)? 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 [...] 10/19/2022 5:09 PM CDT Plan of Treatment Not on file Procedures Procedure Name Priority Date/Time Associated Diagnosis [...] component of this testing was completed at [facility] 01/04/2022 2:01 PM CDT [facility] Brushing CERVIX UTERI STRUCTURE / Unknown 12/31/2021 7:21 AM CDT 12/31/2021 8:30 AM CDT Alex Sales DO LAB - BEAKER AP Final Result [facility] Specialty Lab [address], [address] [place] [address], [place] [phone] * HPV High Risk Types DNA Cervical (12/31/2021 7:21 AM CDT) Other HR HPV Negative Negative 01/06/2022 2:18 PM CDT [facility] HPV16 DNA Negative Negative 01/06/2022 2:18 PM CDT [facility] HPV18 DNA Negative Negative 01/06/2022 2:18 PM CDT [facility] FINAL DIAGNOSIS This patient's sample is negative for HPV DNA. This test was developed and its performance characteristics determined by the [facility]. It has not been [...] LAB - BLOOD ORDERABLES Final Re sult [facility] [address], [address] [place] [address], [place] [phone] from Last 3 Months or Most Recently Relevant to Health Maintenance Care Teams Administrative Support Technician Relationship Specialty [place] [address] [place] [address] PCP - General Family Medicine 12/31/21 Ena Ribera PA-C [address] [place] [address] Assigned PCP 07/13/23
--- OUTSIDE RECORDS SUMMARY | 2024-04-19 09:58 | XMS_ITS | Encounter Summary ---
Author Organization [facility] Address [address] [place] [address] Care Team Providers Care Finance Manager Name Role Phone Alex Sales DO Unavailable [phone] Alex Sales DO Primary Care Provider [phone] Ena Ribera PA-C Unavailable Encounter Details Date Type Department Care Team (Late st Contact Info) Description 02/07/2022 MyC Medical Advice [facility] [id number] [place] [phone] Geno Melendez, UNIT SUPERVISOR Social History Tobacco Use Types Packs/Day Years Used Date Smoking Tobacco: Former Cigarettes Smokeless Tobacco: Current Comments:vaping only Alcohol Use Standard Drinks/Week Comments [...] 12/24/2021 How often do you attend chur ch or yazidi services? Never 12/24/2021 Do you belong to any clubs o r organizations such as worship groups, unions, fraternal or athletic groups, or [...] 12/24/2021 PHQ-2 Answer Date Recorded PHQ-2 Score 2 12/31/2021 [facility] - Occupational Stress Questionnaire Answer Date Recorded [...] place to sleep or slept in a retirement (including now)? 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 Not on arleen e documented as of this encounter Plan of Treatment Not on file documented as of this encounter Visit Diagnoses Not on filedocumented in this encounter Additional Health Concerns Assessment Noted Time PHQ-9 Depression Total Score: 8 12/25/19 22 1:31 PM CDT documented as of this encounter Care Teams Finance Manager Relationship Specialty [place] [address] [place] [address] PCP - General Family Medicine 12/31/21 [place] [address] [place] [address] Assigned PCP 07/15/21 07/12/23 Ena Ribera PA-C [address] [place] [address] Assigned PCP 07/13/23 documented as of this encounter
--- OUTSIDE RECORDS SUMMARY | 2024-04-19 09:58 | XMS_ITS | Encounter Summary ---
Author Organization [place] [facility] Address [address] [place] [address] Care Team Providers Care Personal Insurance Advisor Name Role Phone Alex Sales DO Unavailable [phone] Alex Sales DO Primary Care Provider [phone] Ena Ribera PA-C Unavailable Encounter Details Date Type Department Care Team (Late st Contact Info) Description 04/07/2023 MyC Medical Advice [facility] [address] [place] [phone] Geno Melendez, PRECISION JIG GRINDER Social History Tobacco Use Types Packs/Day Years Used Date Smoking Tobacco: Some Days Cigarettes Smokeless Tobacco: Current Comments:vaping only Alcohol [...] often do you attend chur ch or episcopal services? Never 12/24/2021 Do you belong to any clubs o r organizations such as yazdanism groups, unions, fraternal or athletic groups, or [...] Answer Date Recorded PHQ-2 Score 1 11/30/2022 [facility] - Occupational Stress Questionnaire Answer Date Recorded [...] place to sleep or slept in a care home (including now)? 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 arleen e documented as of this encounter Plan of Treatment Not on file documented as of this encounter Visit Diagnoses Not on filedocumented in this encounter Additional Health Concerns Assessment Noted Time PHQ-9 Depression Total Score: 2 12/01/19 23 5:03 PM CDT documented as of this encounter Care Teams Personal Insurance Advisor Relationship Specialty [place] [address] [place] [address] PCP - General Family Medicine 12/31/21 [place] [address] [place] [address] Assigned PCP 07/15/21 07/12/23 Ena Ribera PA-C [address] [place] [address] Assigned PCP 07/13/23 documented as of this encounter
--- OUTSIDE RECORDS SUMMARY | 2024-04-19 09:58 | XMS_ITS | Encounter Summary ---
Author Organization [facility] Address [address] [place] [address] Care Team Providers Care Postdoctoral Research Associate Name Role Phone Alex Sales DO Primary Care Provider [phone] Ena Ribera PA-C Unavailable Encounter Details Date Type Department Care Team (Late st Contact Info) Description 01/17/2024 MyC Medical Advice [address] [phone] [place] [id number] [place] [address] Social History Tobacco Use Types Packs/Day Years [...] week 12/24/2021 How often do you attend [facility] or jainism services? Never 12/24/2021 Do you belong to any clubs o r organizations such as muslim groups, unions, fraternal or athletic groups, or [...] Answer Date Recorded PHQ-2 Score 1 11/30/2022 [facility] - Occupational Stress Questionnaire Answer Date [...] place to sleep or slept in a fdc (including now)? 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
--- OUTSIDE RECORDS SUMMARY | 2024-04-19 09:58 | XMS_ITS | Encounter Summary ---
Author Organization [facility] Address [address] [place] [address] Care Team Providers Care Optical Lathe Operator Name Role Phone Alex Sales DO Unavailable [phone] Alex Sales DO Primary Care Provider [phone] Ena Ribera PA-C Unavailable Encounter Details Date Type Department Care Team (Late st Contact Info) Description 11/04/2022 MyC Medical Advice [facility] [address] [place] [phone] Geno Melendez, HEAVY EQUIPMENT ENGINE MECHANIC Social History Tobacco Use Types Packs/Day Years [...] often do you attend chur ch or tenriism services? Never 12/24/2021 Do you belong to any clubs o r organizations such as jainism groups, unions, fraternal or athletic groups, or [...] PHQ-2 Answer Date Recorded PHQ-2 Score 2 10/19/2022 [facility] - Occupational Stress Questionnaire Answer Date Recorded [...] place to sleep or slept in a intermediate (including now)? 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 No / Unsure 10/19/2022 4:58 PM CDT documented as of this encounter Plan of Treatment Not on file documented as of this encounter Visit Diagnoses Not on filedocumented in this encounter Additional Health Concerns Assessment Noted Time PHQ-9 Depression Total Score: 6 10/20/19 23 5:03 PM CDT documented as of this encounter Care Teams Optical Lathe Operator Relationship Specialty [place] [address] [place] [address] PCP - General Family Medicine 12/31/21 [place] [address] [place] [address] Assigned PCP 07/15/21 07/12/23 Ena Ribera PA-C [address] [place] [address] Assigned PCP 07/13/23 documented as of this encounter
--- OUTSIDE RECORDS SUMMARY | 2024-04-19 09:58 | XMS_ITS | Encounter Summary ---
Author Organization [facility] [place] Address [address] [place] [address] Care Team Providers Care Trailhead Construction Worker Name Role Phone Alex Sales DO Primary Care Provider [phone] Ena Ribera PA-C Unavailable Reason for Visit * Reason Comments Medication Refill Encounter Details Date Type Department Care Team (Late st Contact Info) Description 01/17/[address] [phone] Ena Ribera PA-C [id number] [place] [address] Medication Refill Social History Tobacco Use Types Packs/Day Years [...] week 12/24/2021 How often do you attend [facility] or jainism services? Never 12/24/2021 Do you belong to any clubs o r organizations such as baptism groups, unions, fraternal or athletic groups, or [...] Answer Date Recorded PHQ-2 Score 1 11/30/2022 [facility] - Occupational Stress Questionnaire Answer Date [...] place to sleep or slept in a fpc (including now)? 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
--- OUTSIDE RECORDS SUMMARY | 2024-04-19 09:58 | XMS_ITS | Encounter Summary ---
Author Organization [facility] Address [address] [place] [address] Care Team Providers Care Quality Reviewer Name Role Phone Alex Sales DO Primary Care Provider [phone] Ena Ribera PA-C Unavailable Encounter Details Date Type Department Care Team (Late st Contact Info) Description 12/22/2023 MyC Medical Advice [address] [phone] [place] [id number] [place] [address] Social History Tobacco Use Types Packs/Day [...] week 12/24/2021 How often do you attend [facility] or holiness services? Never 12/24/2021 Do you belong to any clubs o r organizations such as mormon groups, unions, fraternal or athletic groups, or [...] Answer Date Recorded PHQ-2 Score 1 11/30/2022 [facility] of Occupat ional 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
--- OUTSIDE RECORDS SUMMARY | 2024-04-19 09:58 | XMS_ITS | Encounter Summary ---
Author Organization [place] [facility] Address [address] [place] [address] Care Team Providers Care Motor Vehicle Technician Name Role Phone Alex Sales DO Unavailable [phone] Ref-Primary, Physician Primary Care Provider Alex Sales DO Primary Care Provider Ena Ribera PA-C Unavailable Reason for Visit * Reason Onset Date Comments Refill Request 12/14/2021 Encounter Details Date Type Department Care Team (Late st Contact Info) Description 12/14/[address] [address] Alex Sales DO [address] [place] [address] Refill Request Social History Tobacco Use Types Packs/Day Years Used Date Smoking Tobacco: Former Smokeless Tobacco: Current Comments:vaping only Alcohol Use Standard Drinks/Week Comments Yes 0 (1 standard drink = 0.6 oz pur e alcohol) 1-2 month PHQ-2 Answer Date Recorded PHQ-2 Score 3 08/04/2021 Comments Unknown Sex and Gender Information Value Date Recorded Sex Assigned at Female 12/24/2021 1:13 PM CDT Legal Sex Female 2:23 PM CDT Gender Identity Female 12/24/2021 1:13 PM CDT Sexual Orientation Straight 12/24/2021 1: 13 PM CDT documented as of this encounter Miscellaneous Notes * Telephone Encounter - Kim Macedo RN - 12/14/2021 3:30 PM CDT Prescription approved per [facility] Refill Protocol. Kim Macedo RN * Telephone Encounter - Dora Vega - 12/14/2021 1:53 PM CDT Reason for Call: Medication or medication refill: Do you use a [facility]? Name of the pharmacy and phone number for the current request: cub Name of the medication requested: metoprolol tartrate (LOPRESSOR) 50 MG tablet Other request: pt has appt made Can we leave a detailed message on this number? YES Phone number patient can be reached at: Cell number on file: Telephone Information: Best Time: any Call taken on 12/14/2021 at 1:53 PM by Dora Vega documented in this encounter Plan of Treatment Not on file documented as of this encounter Visit Diagnoses Diagnosis Tachycardia Tachycardia, unspecified documented in this encounter Additional Health Concerns Assessment Noted Time PHQ-9 Depression Total Score: 14 022 7:01 AM ROD MILL TENDER documented as of this encounter Care Teams Motor Vehicle Technician Relationship Specialty Start Date End Date No Ref-Primary, Physician PCP - General 09/21/21 12/30/21 [place] [address] [place] [address] PCP - General Family Medicine 12/31/21 [place] [address] [place] [address] Assigned PCP 07/15/21 07/12/23 Ena Ribera PA-C [address] [place] [address] Assigned PCP 07/13/23 documented as of this encounter
--- NOTE | 2024-04-19 10:15 | CRLHL7_ITS ---
For Patients: As a result of the Century Cures Act, medical imaging exams and procedure reports are released immediately into your electronic medical record. You may view this report before your referring provider. If you have questions, please contact your health care provider. CLINICAL HISTORY: unspecified ovarian cyst TECHNIQUE: 2D walker scale and color Doppler images were acquired of the pelvis using a transvaginal approach. Comparison 12/07/2023 FINDINGS: On transvaginal imaging, the myometrium has a heterogeneous echotexture. Small intramural fibroids are present measuring 8 x 9 x 8 millimeters and 7 x 6 x 8 millimeters. The endometrial lining appears normal and measures 4.5 mm in thickness. The left ovary measures 3.6 x 2.9 x 3.8 cm in size and the right ovary measures 3.8 x 2.2 x 3.3 cm. The ovaries demonstrate normal arterial and venous blood flow on color Doppler analysis. There are no suspicious fluid collections within the cul-de-sac. Hypoechoic left ovarian cyst is decreased in size measuring 2.1 x 1.0 x 1.4 cm, previously measuring 2.3 x 1.5 x 1.4 cm. Simple left ovarian cyst measures 2.6 x 1.4 x 2.3 cm. Simple right ovarian cyst measures 2.3 x 1.1 x 2.0 cm. IMPRESSION: Decreased size of the complex left ovarian cyst without internal blood flow, most consistent with hemorrhagic cyst. Small simple cysts are present within each ovary as well. Dictated by Daniel Luo MD @ 04/19/2024 1:04:30 PM (Electronically Signed)
== END 2024-04-19 09:54 | disposition home or self-care (01) ==
LOC: US 09:54
PROVIDERS: Visit Provider Obstetrics & Gynecology
DX: N83.209 Unspecified ovarian cyst, unspecified side (principal); N83.202 Unspecified ovarian cyst, left side; N83.292 Other ovarian cyst, left side; N83.291 Other ovarian cyst, right side
CPT/HCPCS: 76830

== ENCOUNTER 2025-01-25 12:36 | Emergency (ER) | payer OTHER, SELFPAY ==
[2025-01-25] VITALS (7 sets, daily range): BP systolic 121–126; BP diastolic 75–76; PULSE 63–71; RESP 20; TEMP 36.7; O2SAT 99–100; BMI 29.1
--- OUTSIDE RECORDS SUMMARY | 2025-01-25 12:39 | XMS_ITS | Clinical Summary ---
Author Organization [facility] Address [address] [place] [address] Care Team Providers Care Flight Line Mechanic Name Role Phone Alex Sales DO Primary Care Provider [phone] Alex Sales DO Unavailable [phone] Allergies Active Allergy Reactions Criticality Noted Date [...] nasal sprayIndications :Seasonal allergic rhinitis, unspecified trigger Lucas 1 spray into both nostrils daily 16 [...] Anxiety 02/13/2019 Vocal cord dysfunction 02/13/2019 Immunizations Immunization Administration Dates Next Due COVID-19 MONOVALENT 12+ (Pfizer) 10/20/2020,09/17 DTAP (<7y) 01/02/1997,09/30/1992 HIB(PRP-OMP)(PedvaxHIB) 06/24/1992,09/17,1991,1990 HPV Quadrivalent 06/25/2007,02/26/2007, 7 Hepatitis B, Peds (Engerix-B/Recombivax HB) 01/02/1997,07/13/1993,09/30/1992 Influenza (H1N1) 05/12/2009 Influenza Vaccine >6 months,quad, PF 03/08/2022, 07/08/2020,05/01/2018 MMR (MMRII) 01/24/2003,06/24/1992 Pneumococcal 23 valent 09/09/2014 Poliovirus, inactivated [...] often do you attend chur ch or congregation services? Never 12/24/2021 Do you belong to any clubs o r organizations such as buddhism groups, unions, fraternal or athletic groups, or [...] Answer Date Recorded PHQ-2 Score 1 11/30/2022 [facility] - Occupational Stress [...] place to sleep or slept in a longterm (including now)? 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 Not on arleen e Last Filed Vital Signs Vital Sign Reading Time Taken Comments Blood Pressure 107/71 10/19/2022 5:09 PM CDT Pulse 77 10/19/2022 5:09 PM CDT Temperature 36.7 C (98.1 F) 10/19/2022 5:09 PM CDT Respiratory Rate 14 10/19/2022 5:09 PM CDT Oxygen Saturation 98% 10/19/2022 5:09 PM CDT Inhaled Oxygen Concentration - - Weight 69.4 kg (153 lb) 10/19/2022 5:09 PM CDT Height 162.6 cm (5' 4) 10/19/2022 5:09 PM CDT Body Mass Index 26.26 10/19/2022 5:09 PM CDT Plan of Treatment Health Maintenance Due Date Last Done Comments DEPRESSION ACTION PLAN 1991 PNEUMOCOCCAL VACCINE: PEDIATRICS (0 to 5 YEARS) AND AT-RISK PATIENTS (6 to 49 YEARS) (2 of 2 - PCV) 09/10/2015 09/09/2014 ANNUAL REVIEW OF HM ORDERS 12/31/2022 12/31/2021 ASTHMA ACTION PLAN 12/31/2022 12/31/2021 YEARLY PREVENTIVE VISIT 12/31/2022 12/31/2021, 07/08 ASTHMA CONTROL TEST 04/21/2023 10/19/2022, 03/08/2022, 02/07/2022, Additional history exists PHQ-9 06/01/2023 11/30/2022, 050 08/2022, 10/19/2022, Additional history exists COVID-19 VACCINE ( season) 2024 10/20/2020, 10/01/2020 INFLUENZA VACCINE (#1) 2025 , 07/08/2020, 05/01/2018, Additional history exists DTAP/TDAP/TD VACCINE (5 - Td or Tdap) 03/24/2026 03/24/2016, 01/26/2006, 01/02/1997, Additional history exists HPV TEST 12/31/2026 12/31/2021 PAP 12/31/2026 12/31/2021, 10/0 11/2015, 02/18/2015, Additional history exists ADVANCE CARE PLANNING 01/02/2027 01/02/2022 ZOSTER VACCINE (1 of 2) 2041 HEPATITIS B VACCINE Completed 01/02/1997, 07/13/1993, 09/30/1992 HPV VACCINE Completed 06/25/2007, 02/17, 12/25/2006 HEPATITIS C SCREENING Discontinued HIV SCREENING Discontinued MENINGITIS VACCINE Aged Out No longer eligible based on patient's age to complete [...] (NILM) 01/04/2022 2:01 PM CDT [facility] at 1401 CDT Comment Papanicolaou Test Limitations: Cervical cytology is [...] of this testing was completed at [facility] 01/04/2022 2:01 PM CDT [facility] Brushing CERVIX UTERI STRUCTURE / Unknown 12/31/2021 7:21 AM CDT 12/31/2021 8:30 AM CDT Alex Sales DO LAB - BEAKER AP Final Result [facility] Specialty Lab [address], [address] [place] [address], [facility] [phone] * HPV High Risk Types DNA Cervical (12/31/2021 7:21 AM CDT) Other HR HPV Negative Negative 01/06/2022 2:18 PM CDT [facility] HPV16 DNA Negative Negative 01/06/2022 2:18 PM CDT [facility] HPV18 DNA Negative Negative 01/06/2022 2:18 PM CDT [facility] FINAL DIAGNOSIS This patient's sample is negative for HPV DNA. This test was developed and its performance characteristics determined by the [facility], Molecular Diagnostics Laboratory. It has not been [...] Re sult [facility] Molecular Diagnostics [address], [address] [place] [address], [facility] [phone] from Last 3 Months or Most Recently Relevant to Health Maintenance Care Teams Flight Line Mechanic Relationship Specialty [place] [address] [place] [address] PCP - General Family Medicine 12/31/21 [place] [address] [place] [address] Assigned PCP 06/10/24
--- OUTSIDE RECORDS SUMMARY | 2025-01-25 12:39 | XMS_ITS | Clinical Summary ---
Author Organization [facility] Address [address] [place] [address] Care Team Providers Care Director Data Architecture Name Role Phone Clinic, [facility] Unavailable U Mile Pradhan Primary Care Provider Unavaila ble Allergies Active Allergy Reactions Criticality Noted Date Comments Codeine 01/04/2019 Medications LORazepam (ATIVAN) 1 mg oral tablet Take 1 tablet (1 mg) by mouth every 4 (four) hours as needed. 10 tablet 01/04/2019 Active Social History Tobacco Use Types Packs/Day Years Used Date Smoking Tobacco: Never Assessed Comments Unknown Sex and Gender Information Value Date Recorded Sex Assigned at Not on file Legal Sex Female 3:46 AM CDT Gender Identity Not on file Sexual Orientation Not on file Last Filed Vital Signs Vital Sign Reading Time Taken Comments Blood Pressure 115/67 01/06/2019 10:24 PM CDT Pulse 65 01/06/2019 10:24 PM CDT Temperature 36.7 C (98.1 F) 01/06/2019 10:24 PM CDT Respiratory Rate 16 01/06/2019 10:24 PM CDT Oxygen Saturation 99% 01/06/2019 10:24 PM CDT Inhaled Oxygen Concentration - - Weight - - Height - - Body Mass Index - - Plan of Treatment Health Maintenance Due Date Last Done Comments Hepatitis C Screening 1991 Pap Smear 1991 Anxiety Screening (MIGDALIA-2) 1992 Depression Assessment (PHQ-2) 1992 COVID-19 Vaccine (2023-2 5 season) 2024 Influenza Vaccine (#1) 2025 Adult Tetanus Booster 03/24/2026 03/24/2016 , 01/26/2006 RSV Vaccines (1 - 1-dose 75+ series) 2066 Pneumococcal Vaccine Aged Out 09/09/2014 No long er eligible based on patient's age to complete this topic Meningococcal B Vaccine Aged Out No l onger eligible based on patient's age to complete this topic Insurance [facility] Address: [facility] [address] [place] [address] Care Teams Director Data Architecture Relationship Specialty Start Date End [facility] 01/04/19 [place] PCP - General 01/04/19
--- OUTSIDE RECORDS SUMMARY | 2025-01-25 12:39 | XMS_ITS | Encounter Summary ---
Author Organization [facility] Address [address] [place] [address] Care Team Providers Care Financial Advisor Trainee Name Role Phone Alex Sales DO Unavailable [phone] Alex Sales DO Primary Care Provider [phone] Ena Ribera PA-C Unavailable Alex Sales DO Unavailable [phone] Encounter Details Date Type Department Care Team (Late st Contact Info) Description 04/07/2023 MyC Medical Advice [address] [phone] Geno Melendez, TECHNICAL PROJECT LEAD Social History Tobacco Use Types Packs/Day Years [...] week 12/24/2021 How often do you attend [facility] or bahai services? Never 12/24/2021 Do you belong to any clubs o r organizations such as anglican groups, unions, fraternal or athletic groups, or [...] Answer Date Recorded PHQ-2 Score 1 11/30/2022 [facility] - Occupational Stress Questionnaire Answer Date [...] place to sleep or slept in a senior living (including now)? 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 Not on arleen e documented as of this encounter Plan of Treatment Not on file documented as of this encounter Visit Diagnoses Not on filedocumented in this encounter Additional Health Concerns Assessment Noted Time PHQ-9 Depression Total Score: 2 12/01/19 23 5:03 PM CDT documented as of this encounter Care Teams Financial Advisor Trainee Relationship Specialty [place] [address] [place] [address] PCP - General Family Medicine 12/31/21 [place] [address] [place] [address] Assigned PCP 07/15/21 07/12/23 Ena Ribera PA-C [address] [place] [address] Assigned PCP 07/13/23 06/09/24 [place] [address] [place] [address] Assigned PCP 06/10/24 documented as of this encounter
--- OUTSIDE RECORDS SUMMARY | 2025-01-25 12:39 | XMS_ITS | Encounter Summary ---
Author Organization [facility] Address [address] [place] [address] Care Team Providers Care Load Out Worker Name Role Phone Alex Sales DO Unavailable [phone] Alex Sales DO Primary Care Provider [phone] Ena Ribera PA-C Unavailable Alex Sales DO Unavailable [phone] Encounter Details Date Type Department Care Team (Late st Contact Info) Description 02/07/2022 MyC Medical Advice [address] [phone] Geno Melendez, SEPARATOR TENDER Social History Tobacco Use Types Packs/Day Years [...] How often do you attend chur or sikh services? Never 12/24/2021 Do you belong to any clubs o r organizations such as rastafari groups, unions, fraternal or athletic groups, or [...] Answer Date Recorded PHQ-2 Score 2 12/31/2021 [facility] of Occupat ional [facility] - Occupational Stress Questionnaire Answer Date Recorded [...] in a fdc (including now)? 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 Not on arleen e documented as of this encounter Plan of Treatment Not on file documented as of this encounter Visit Diagnoses Not on filedocumented in this encounter Additional Health Concerns Assessment Noted Time PHQ-9 Depression Total Score: 8 12/25/19 22 1:31 PM CDT documented as of this encounter Care Teams Load Out Worker Relationship Specialty [place] [address] [place] [address] PCP - General Family Medicine 12/31/21 [place] [address] [place] [address] Assigned PCP 07/15/21 07/12/23 Ena Ribera PA-C [address] [place] [address] Assigned PCP 07/13/23 06/09/24 [place] [address] [place] [address] Assigned PCP 06/10/24 documented as of this encounter
--- OUTSIDE RECORDS SUMMARY | 2025-01-25 12:39 | XMS_ITS | Patient Health Record ---
Author Organization [facility] Address [address] [place] [address] Care Team Providers Care Hospital Wellness Coordinator Name Role Phone MarcRossanaMile Primary Care Provider Unavaila GERARDO Sousa Unavailable [phone] Venus Meeks Unavailable Unavailable Allergies Allergen (clinical drug ingredient) Drug/Non Drug Allergy documented on EMR Reaction Allergy Type Onset Date Status codeine Codeine Sulfate Unknown Drug Allergy A ctive Reason For Referral No Information Medications Medication SIG (Take, Route, Fr equency, Duration) Notes Start Date End Date Status Claritin Active Topamax Active Metoprolol Succinate Active Zoloft Active Albuterol Active Social History Tobacco Use: Social History Observation Description Date Details (start date - stop date) Former Smoker NA - NA Social History : Social Info Question Answer Notes How often do you consume alcohol? Answer: less th an 6 per week Tobacco Use: Social Info Question Answer Notes Tobacco use/smoking Are you a former smoker Plan Of Treatment No Information Insurance Providers Payer Name Payer Address Payer Phone Subscriber Number Group Number Insured Name Patient Relationship to Insured Coverage Start Date Coverage End Date [employer] [id number] [address] [address] [place], [place] [id number] Julia Paige Self - patient is the insured Medical (General) History Medical History History ICD Code Heart disease
--- OUTSIDE RECORDS SUMMARY | 2025-01-25 12:39 | XMS_ITS | Encounter Summary ---
Author Organization [facility] Address [address] [place] [address] Care Team Providers Care Record Center Coordinator Name Role Phone Alex Sales DO Unavailable [phone] Ref-Primary, Physician Primary Care Provider Alex Sales DO Primary Care Provider [phone] Ena Ribera PA-C Unavailable Alex Sales DO Unavailable [phone] Reason for Visit * Reason Onset Date Comments Refill Request 12/14/2021 Encounter Details Date Type Department Care Team (Late st Contact Info) Description 12/14/[address] [phone] [place] [id number] [place] [address] Refill Request Social History Tobacco Use Types [...] 12/14/2021 3:30 PM CDT Prescription approved per [facility] Refill Protocol. Kim Macedo RN * Telephone Encounter - Dora Vega - 12/14/2021 1:53 PM CDT Reason for Call: Medication or medication refill: Do you use a [facility]? Name of the pharmacy and phone [...] Depression Total Score: 14 022 7:01 AM SHOW HORSE DRIVER documented as of this encounter Care Teams Record Center Coordinator Relationship Specialty Start Date End Date No Ref-Primary, Physician PCP - General 09/21/21 12/30/21 [place] [address] [place] [address] PCP - General Family Medicine 12/31/21 [place] [address] [place] [address] Assigned PCP 07/15/21 07/12/23 Ena Ribera PA-C [address] [place] [address] Assigned PCP 07/13/23 06/09/24 [place] [address] [place] [address] Assigned PCP 06/10/24 documented as of this encounter
--- OUTSIDE RECORDS SUMMARY | 2025-01-25 12:39 | XMS_ITS | Clinical Summary ---
Author Organization [employer] [facility] Address [address] [place] [address] Care Team Providers Care Psychology Fellow Name Role Phone Pcp, No Primary Care Provider Unavailabl e Allergies Active Allergy Reactions Criticality Noted Date Comments Codeine Diarrhea 10/14/2017 Medications vit/iron fum/folic ac ( 1 PLUS 1 ORAL) Take by mouth. Active loratadine (CLARITIN ORAL) Take by mouth. Active topiramate (TOPAMAX) 25 mg tabletIndications :Migraine with aura, not intractable, without status migrainosus TAKE TWO TABLETS BY MOUTH TWICE A DAY 60 tablet 0 Active sertraline (ZOLOFT) 50 mg tabletIndications :Anxiety,Depressi on, major, single episode, mild TAKE ONE TABLET BY MOUTH EVERY MORNING 7 tablet 0 Active SUMAtriptan (IMITREX) 100 mg tabletIndications :Migraine with aura, not intractable, without status migrainosus TAKE 1 TABLET AT ONSET OF HEADACHE. MAY REPEAT IN 2 HOURS IF NEEDED. MAX 2 TABLETS IN 24 HOURS 12 tablet 3 1 Active metoprolol tartrate (LOPRESSOR) 50 mg tabletIndications :Sinus tachycardia Take 1 tablet by mouth 2 times daily. 180 tablet 3 1 Active albuterol HFA (PRO-AIR; VENTOLIN; PROVENTIL) 90 mcg/actuation inhalerIndication s:Moderate persistent asthma without complication (HC) INHALE ONE TO TWO PUFFS BY MOUTH EVERY 6 HOURS NEEDED 18 g 1 Active Active Problems Problem Noted Date Diagnosed Date Benign thyroid cyst 02/13/2019 Overview (02/13/2019): Does need u/s done 6mo-1 year per ENT, 1st one done was 12/2018 Anxiety 02/13/2019 Depression, major, single episode, mild 02/14/20 19 Tachycardia 02/13/2019 Intractable migraine with aura without status mi grainosus 02/13/2019 Vocal cord dysfunction 02/13/2019 Mild intermittent asthma without complication Immunizations Immunization Administration Dates Next Due COVID-19 vaccine ([employer] 30mcg/0.3mL) PF, MDV 10/20/2020,10/01/2020 DTaP 01/02/1997,09/30/1992 HIB PRP-OMP (PedvaxHIB) 06/24/1992,09/17,1991,1990 Hepatitis B (Peds) 01/02/1997,07/13/1993, 993 Human Papilloma Virus Vaccine 06/25/2007, 007,12/25/2006 Inactivated Polio Vaccine 01/02/1997,,1991,1990 Influenza A (H1N1), Inactivated 05/12/2009 Influenza, IIV4 07/08/2020,05/01/2018 MMR 01/24/2003,06/24/1992 Pneumococcal Poly,23-Valent (Pneumovax) 09/09/2014 Tdap 03/24/2016,01/26/2006 Family History Medical History Relation Name Comments No Known Problems Brother Stroke Father Cancer Maternal Grandfather unsure Cancer-colon Maternal Grandmother Diabetes Maternal Grandmother Asthma Mother Migraines Mother Supraventricular tachycardia Mother Cancer-pancreatic Paternal Grandfather Heart Disease Paternal Grandmother Other Sister neck - degenera tive disc Cancer-breast No Family History Cancer-ovarian No Family History Relation Name Status Comments Brother Alive Father Alive Maternal Grandfather Maternal Grandmother Mother Alive Paternal Grandfather Paternal Grandmother Sister Alive Social History Tobacco Use Types Packs/Day Years Used Date Smoking Tobacco: Former Cigarettes 0 10/04/2017 - 12/18/2018 Smokeless Tobacco: Never Tobacco Cessation:Ready to Q uit: Yes; Counseling Given: Yes Comments:quit 3.5 weeks ago, smokes E-Cigs- quitting Alcohol Use Standard Drinks/Week Comments Not Currently 0 (1 standard drink = 0.6 oz pur e alcohol) PHQ-2 Answer Date Recorded PHQ-2 TOTAL SCORE 2 07/08/2020 Social Connections Answer Date Recorded Frequency of Communication with Friends and Fami ly Not on file 06/11/2021 Financial Resource Strain Answer Date R ecorded Difficulty of Paying Living Expenses Not on file 06/11/2021 Difficulty of Paying Living Expenses Not on file 06/11/2021 Comments No Sex and Gender Information Value Date Recorded Sex Assigned at Not on file Legal Sex Female 8:11 AM [employer] Gender Identity Not on file Sexual Orientation Not on file 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 Not on file Not on file Obstetrics History Last Filed Vital Signs Vital Sign Reading Time Taken Comments Blood Pressure 92/70 07/08/2020 9:05 AM [employer] Pulse 68 07/08/2020 9:05 AM [employer] Temperature 36.5 C (97.7 F) 03/14/2019 10:33 AM CDT Respiratory Rate 17 03/14/2019 10:3 3 AM CDT Oxygen Saturation 100% 03/14/2019 10: 33 AM CDT Inhaled Oxygen Concentration - - Weight 74.9 kg (165 lb 1.6 oz) 07/08/19 9:05 AM [employer] with boots Height 165.1 cm (5' 5) 07/08/2020 9:05 AM [employer] Body Mass Index 27.47 07/08/2020 9:05 AM [employer] Plan of Treatment Health Maintenance Due Date Last Done Comments HIV for age 15-65 2006 Hepatitis C screening for age 18-79 2009 BMI (ht and wt on same day) for age 18+ 07/08/2021 07/08/2020, 01/18/2019, 01/08/2019, Additional history exists Depression screening for age 12+ 07/08/2021 07/08/2020, 04/19/2019, 04/17/2019, Additional history exists Pap test for age 21-65 11/28/2021 11/28/2018 COVID-19 vaccine series ( season) 2024 10/20/2020, 10/01/2020 Influenza Vaccine (#1) 2025 07/08/2020, 2017 Tetanus booster 03/24/2026 03/24/2016, 01/26/2006 Hepatitis B series for 19+ Completed 01/02, 07/13/1993, 09/30/1992 Pneumococcal series for age 6-49 Aged Out 09/09/2014 No longer eligible based on patient's age to complete this topic Procedures Procedure Name Priority Date/Time Associated Diagnosis Comments DIGITAL PHOTOGRAPHER THIN PREP PAP SCREEN IMAGED Routine 11/28/2018 9:15 AM CDT Routine health maintenance from Last 3 Months or Most Recently Relevant to Health Maintenance Results * DIGITAL PHOTOGRAPHER THIN PREP PAP SCREEN IMAGED (11/28/2018 9:15 AM CDT) Case Report Gynecologic Cytology Report Case: [id number] Authorizing Provider: Ubaldo Pickett MBBS Collected: 11/28/2018 0915 Ordering Location: [facility] Received: 11/28/2018 1004 Clinic First Screen: Pina Cantrell Pathologist: Ravi Capps Jr., MD Specimen: DIGITAL PHOTOGRAPHER ThinPrep Vial Screening, Cervical 12/05/2018 2:31 PM CDT [facility]AL LABORAT[facility] INTERPRETATION/ RESULT NEGATIVE FOR INTRAEPITHELIAL LESION OR MALIGNANCY (NIL) (none) 12/05/2018 2:31 PM CDT [facility] at 1431 CDT SPECIMEN ADEQUACY Satisfactory for evaluation Endocervical component present 12/05/2018 2:31 PM CDT [facility] [employer] ENTRAL LABORATORY HPV REQUEST HPV if ASCUS 12/05/2018 2:31 PM CDT [facility] [employer] LABORATORY-C ENTRAL LABORATORY Date of LMP 11/04/2018 12/05/2018 2:31 PM CDT [facility] [employer] ENTRAL LABORATORY Last Pap Date unknown 12/05/2018 2:31 PM CDT [facility] [employer] ENTRAL LABORATORY Last Pap Result First Pap/Unknown 2:31 PM CDT [facility] [employer] ENTRAL LABORATORY Abnormal Pap or Faber Bx in last 5 years No 12/05/2018 2:31 PM CDT [facility] Menstrual Status Regular Periods 12/05/2018 2:31 PM CDT [facility] Faber Bx Done Today No 12/05/2018 2:31 PM CDT [facility] Additional Information None given 12/05/2018 2:31 PM CDT [facility] Automated Review Successful 12/05/2018 2:31 PM CDT [facility] Comment:Specimen processed s uccessfully by automated bakery worker device, ThinPrep Imaging System, [employer] Note The pap test is a screening technique, not a diagnostic procedure. It is used primarily to screen for squamous cancers and precursor lesions. Published studies have shown that it is subject to both false negative and false positive results. The pap test should not be used as the sole means to diagnose or exclude pre-malignant and malignant lesions. Cytology is screened and interpreted at [facility] - [address], [place] [address] and [facility] - [address]; [place] [address] and [facility] - [address]; [place] [address] and [facility] [address]; [place] [address] 12/05/2018 2:31 PM CDT [facility] Other (Cervical) Non-Blood / Unknown 11/28/2018 9:15 AM CDT 11/28/2018 10:04 AM CDT Comment:Verbal Order per Dr Pickett Read Back us Ubaldo JEAN BAPTISTE PATHOLOGY/CYTOLOGY Final Result [facility] [address] [place] [address], [place] from Last 3 Months or Most Recently Relevant to Health Maintenance Insurance [facility] x5 (Home) [phone] x5 (Work) ATTN:YOBANY PAYABLE [address] [address] [place] [address] Care Teams Psychology Fellow Relationship Specialty Start Date End Date Pcp, No . PCP - General 05/25/21
--- OUTSIDE RECORDS SUMMARY | 2025-01-25 12:39 | XMS_ITS | Encounter Summary ---
Author Organization [facility] Address [address] [place] [address] Care Team Providers Care Torch Solderer Name Role Phone Alex Sales DO Unavailable [phone] Alex Sales DO Primary Care Provider [phone] Ena Ribera PA-C Unavailable Alex Sales DO Unavailable [phone] Encounter Details Date Type Department Care Team (Late st Contact Info) Description 11/04/2022 My[facility] Medical Advice [address] [id number] Geno Melendez, MEETING PLANNER Social History Tobacco Use Types Packs/Day Years [...] week 12/24/2021 How often do you attend [facility] or sabianism services? Never 12/24/2021 Do you belong to any clubs o r organizations such as mosque groups, unions, fraternal or athletic groups, or [...] Answer Date Recorded PHQ-2 Score 2 10/19/2022 [facility] - Occupational Stress Questionnaire Answer Date Recorded [...] place to sleep or slept in a mcfp (including now)? 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
--- OUTSIDE RECORDS SUMMARY | 2025-01-25 12:40 | XMS_ITS | Encounter Summary ---
Author Organization [facility] Address [address] [place] [address] Care Team Providers Care Development Consultant Name Role Phone Alex Sales DO Primary Care Provider [phone] Ena Ribera PA-C Unavailable Alex Sales DO Unavailable [phone] Encounter Details Date Type Department Care Team (Late st Contact Info) Description 01/17/2024 MyC Medical Advice [address] [address] [place] [id number] [place] [address] Social History Tobacco Use Types Packs/Day [...] week 12/24/2021 How often do you attend [facility] or orthodox services? Never 12/24/2021 Do you belong to any clubs o r organizations such as taoist groups, unions, fraternal or athletic groups, or [...] Answer Date Recorded PHQ-2 Score 1 11/30/2022 [facility] - Occupational Stress Questionnaire Answer [...] in a mcfp (including now)? 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 Not on file Not on arleen e documented as of this encounter Plan of Treatment Not on file documented as of this encounter Visit Diagnoses Not on filedocumented in this encounter Additional Health Concerns Assessment Noted Time PHQ-9 Depression Total Score: 2 12/01/19 23 5:03 PM CDT documented as of this encounter Care Teams Development Consultant Relationship Specialty [place] [address] [place] [address] PCP - General Family Medicine 12/31/21 Ena Ribera PA-C [address] [place] [address] Assigned PCP 07/13/23 06/09/24 [place] [address] [place] [address] Assigned PCP 06/10/24 documented as of this encounter
--- OUTSIDE RECORDS SUMMARY | 2025-01-25 12:40 | XMS_ITS | Encounter Summary ---
Author Organization [facility] Address [address] [place] [address] Care Team Providers Care Launch Leader Name Role Phone Alex Sales DO Primary Care Provider [phone] Ena Ribera PA-C Unavailable Alex Sales DO Unavailable [phone] Encounter Details Date Type Department Care Team (Late st Contact Info) Description 12/22/2023 MyC Medical Advice [address] [address] [place] [address] [place] [address] Social History Tobacco Use Types Packs/Day [...] week 12/24/2021 How often do you attend [facility] or zoroastrian services? Never 12/24/2021 Do you belong to any clubs o r organizations such as evangelical groups, unions, fraternal or athletic groups, or [...] Answer Date Recorded PHQ-2 Score 1 11/30/2022 [facility] - Occupational Stress Questionnaire Answer Date Recorded [...] place to sleep or slept in a assisted (including now)? 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 Not on arleen e documented as of this encounter Plan of Treatment Not on file documented as of this encounter Visit Diagnoses Not on filedocumented in this encounter Additional Health Concerns Assessment Noted Time PHQ-9 Depression Total Score: 2 12/01/19 23 5:03 PM CDT documented as of this encounter Care Teams Launch Leader Relationship Specialty [place] [address] [place] [address] PCP - General Family Medicine 12/31/21 Ena Ribera PA-C [address] [place] [address] Assigned PCP 07/13/23 06/09/24 [place] [address] [place] [address] Assigned PCP 06/10/24 documented as of this encounter
--- NOTE | 2025-01-25 13:00 | CRLHL7_ITS ---
For Patients: As a result of the Cures Act, medical imaging exams and procedure reports are released immediately into your electronic medical record. You may view this report before your referring provider. If you have questions, please contact your health care provider. Indication: Knee injury. Technique: 2 radiographic views of the right knee. Comparison: None. Findings: No acute fractures. No traumatic subluxation. A large knee effusion. Impression: 1. No acute osseous abnormalities. Dictated by Jg Nagy MD @ 01/25/2025 2:06:57 PM (Electronically Signed)
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
[2025-01-25] MEDS: HYDROCODONE-ACETAMIN 5-325 MG 1 TAB PO (14:13)
== END 2025-01-25 14:50 | disposition home or self-care (01) ==
PROVIDERS: Emergency Provider Family Medicine; PCP Nurse Practitioner Family
DX: M25.461 Effusion, right knee (principal); V29.99XA Rider (driver) (passenger) of other motorcycle injured in unspecified traffic accident, initial encounter
CPT/HCPCS: 73562; 99283; 99284; A9270

== ENCOUNTER 2025-02-13 14:34 | Outpatient (CLI) | payer OTHER, SELFPAY ==
--- NOTE | 2025-02-13 15:00 | MR_ITS ---
[address] [address] Phone:?[phone] Fax:?[phone] Referring Physician Information: Jordi Casas M.D. [id number] [facility] [address] Phone:?[phone] Fax:?[phone] Patient:Kit Dumont D.O.B:?1990 Sex:?Female Phone:? [facility] MRN:?[id number] Exam Date:?02/13/2025 EXAM: MRI of the RIGHT KNEE without contrast CLINICAL: Evaluate for MCL sprain. COMPARISONS: X-rays dated 01/25/2025. TECHNICAL: Multiplanar multisequence MRI of the right knee was obtained. SEDATION: None. CONTRAST: None. FINDINGS: Ligaments: ACL: Intact and unremarkable. PCL: Intact and unremarkable. MCL: Intact and unremarkable. LCL: Intact and unremarkable. Posterolateral corner: There is mild partial tearing of the distal biceps tendon with adjacent soft tissue edema as seen on axial series 4 image 5-20. The popliteus tendon, distal iliotibial band, and the popliteofibular ligament appear intact. Posteromedial corner: Semimembranosus, pes anserine tendons and posterior oblique ligament appear intact. Extensor mechanism: Patellar tendon: Intact, without tendinopathy. Quadriceps tendon: Intact, without tendinopathy. Retinacula: Medial and lateral retinacula are intact. Fat pads: Unremarkable infrapatellar Hoffa's, quadriceps and prefemoral fat pads. Patellofemoral joint: Patella: No significant chondromalacia. Trochlea: No significant chondromalacia. Medial compartment: Medial meniscus: No evidence of discrete meniscal tear or meniscal displacement. Medial cartilage: No significant chondromalacia. Lateral compartment: Lateral meniscus: There is complex tearing involving the posterior root as seen on sagittal series 6 image 12-14. Remainder of the lateral meniscus appears intact. Lateral cartilage: There is chondral injury involving the lateral tibial plateau at the fracture site. Lateral femoral condyle cartilage is preserved. Knee joint: Effusion: Moderate sized perfusion is present with fluid fluid level/hemarthrosis. Intra-articular bodies:?No convincing bodies identified. Popliteal cyst: None. Bones: There is a comminuted fracture involving the lateral tibial plateau extending into the tibial spines as well as the anterior medial tibial plateau and proximal tibial metaphysis. Associated bone marrow edema. There is approximately 8 mm of articular surface depression of the posterior lateral tibial plateau. Remaining osseous structures appear intact. IMPRESSION: 1. Fracture of the lateral tibial plateau extending into the tibial spines, anterior medial tibial plateau and proximal tibial metaphysis. Articular depression of the posterior lateral tibial plateau by approximately 8 mm. 2. Complex tearing involving the posterior root lateral meniscus. 3. Mild partial tearing of the distal biceps tendon. 4. Moderate sized joint effusion with fluid fluid level/hemarthrosis. 5. Cruciate and collateral ligaments appear intact. JCZ Electronically signed on 02/14/2025 8:14:00 AM by Stephen Michael D.O.
== END 2025-02-13 14:35 | disposition home or self-care (01) ==
LOC: MRI 14:34
PROVIDERS: PCP Nurse Practitioner Family; Visit Provider Orthopaedic Surgery Sports Medicine
DX: M25.561 Pain in right knee (principal); S82.141A Displaced bicondylar fracture of right tibia, initial encounter for closed fracture; S83.241A Other tear of medial meniscus, current injury, right knee, initial encounter; M25.461 Effusion, right knee; S83.411A Sprain of medial collateral ligament of right knee, initial encounter; S89.90XA Unspecified injury of unspecified lower leg, initial encounter
CPT/HCPCS: 73721

== ENCOUNTER 2025-02-28 12:38 | Outpatient (CLI) | payer OTHER, SELFPAY | END 2025-02-28 12:39 | disposition home or self-care (01) | PROVIDERS: PCP Nurse Practitioner Family; Visit Provider Nurse Practitioner Family | DX: Z01.818 Encounter for other preprocedural examination (principal) | CPT/HCPCS: 80053; 85025 ==

== ENCOUNTER 2025-03-10 07:10 | Day surgery (SDC) | payer OTHER, SELFPAY ==
[2025-03-10] VITALS (13 sets, daily range): BP systolic 88–120; BP diastolic 46–94; PULSE 51–69; RESP 15–18; TEMP 36.1–37.4; O2SAT 94–100; BMI 27.5
[2025-03-10] MEDS: SODIUM CHLORIDE 0.9 % (FLUSH) 10 ML SYRINGE IVF (08:00)
[2025-03-10 08:02] LABS: Ur HCG Qualitative* Negative (Negative)
[2025-03-10] MEDS: LACTATED RINGERS 500 ML 500 ML 100 ML IV (08:24)
--- NOTE | 2025-03-10 09:55 | W.PM.H&PU ---
History & Physical Update History & Physical Update H&P Reviewed and patient assessed: No changes noted
[2025-03-10] MEDS: ROPIVACAINE 0.5% 30 ML 150 MG INJECTION (10:30)
--- NOTE | 2025-03-10 10:32 | P.ORPRC_ITS ---
Procedure Note Date of procedure: 03/10/25 Procedure: PREOPERATIVE DIAGNOSIS: 1. Right knee lateral meniscus posterior root tear POSTOPERATIVE DIAGNOSIS: 1. 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 Right knee intact lateral meniscus, including the posterior root PROCEDURE: 1. Right knee arthroscopic chondroplasty lateral compartment SURGEON: Jordi Casas M.D. GIRL FRIDAY: FRANCINE Nunez. Of note, an kindergarten teacher assistant was critical for this case to aid in patient positioning, knee manipulation, instrument exchange, and closure. ANESTHESIA: Spinal EBL: 2ml TOURNIQUET: 20 min at 250 torr COMPLICATIONS: None evident INDICATIONS: The patient is a pleasant 34-year-old female who sustained an injury to her right knee in late January,. At that time, she was found to have sustained a lateral tibial plateau fracture with minimal depression of the far posterior aspect. She was also found to have a lateral meniscus posterior root tear, per the radiologist interpretation of the MRI. Given these findings, after allowing some time for the fracture to stabilize, recommendation was made for surgery to repair the posterior root lateral meniscus tear. FINDINGS: Intact posterior root lateral meniscus. Intact lateral meniscus otherwise. Hemorrhage seen on the undersurface of the lateral meniscus posterior horn consistent with the posterior lateral tibial plateau mild depression fracture which also had some chondromalacia in this vicinity. Weight-bearing portion of the tibia otherwise appear to be intact through at least the anterior 2/3's of the articular cartilage if not more. Medial meniscus intact. Cruciates intact. Collateral ligaments felt to be intact on exam. DESCRIPTION OF PROCEDURE: After a thorough discussion of risks, benefits, and alternatives, the patient was brought to the operating room and placed upon the operating table. Induction of anesthesia was undertaken as previously noted. 1 g IV Ancef was administered within 1 hr of incision preoperatively. Appropriate time-out was performed identifying proper patient, site, and procedure. The right lower extremity was prepped and draped in the appropriate sterile fashion using ChloraPrep. The limb was exsanguinated and tourniquet i nflated. Anterolateral and anteromedial portals were established with an 11 blade, and a diagnostic arthroscopy was performed. This identified the findings as noted above. Following the diagnostic arthroscopy, a chondroplasty was performed of the lateral compartment of the loose chondral flaps of the tibial plateau which primarily were underneath the meniscus tissue. The mild hemorrhagic tissue adjacent to the posterior capsule was also debrided with the torpedo shaver. Following this, the meniscus was re-probed and found to be stable. At this stage, the shaver was reinserted into the suprapatellar pouch and all remaining chondral debris was evacuated. Instruments were removed, excess fluid was drained, and closure performed with 4-0 Monocryl with Steri-Strips. Dressings were applied, the tourniquet deflated, and the patient was awoken from anesthesia and transferred to the PACU in stable condition. PLAN: 1. Partial weight-bearing operative extremity. Crutch / walker ambulation assistance PRN. (10% WB at this time. Progress an additional 25% every 2-5 days based on comfort and pain as able.) 2. Ice, acetominophen and/or ibuprofen, and Oxycodone for pain as needed. 3. Knee range of motion and quad sets/straight leg raise regularly 4. Follow up with PA visit in 1-2 weeks for a wound check and possibly to initiate physical therapy.
--- NOTE | 2025-03-10 10:43 | P.ANES_ITS ---
Anesthesia Charges Start Date/Time Anesthesia Start Date: 03/10/25 Anesthesia Start Time: 09:46 Stop Date/Time Anesthesia Stop Date: 03/10/25 Anesthesia Stop Time: 10:42 Coding CPT Codes CPT Codes: ANESTH KNEE JOINT SURGERY - 33861 ([id number]) P2 - PATIENT W/MILD SYST DISEASE, QK - SYNTHETIC PLASTERER 2-4 CNCRNT ANES PROC, QX - VIDEO GAME ENGINEER SVC W/ MD MED DIRECTION
--- NOTE | 2025-03-10 10:43 | W.ANESCHARGE ---
Anesthesia Charges Start Date/Time Anesthesia Start Date: 03/10/25 Anesthesia Start Time: 09:46 Stop Date/Time Anesthesia Stop Date: 03/10/25 Anesthesia Stop Time: 10:42 Coding CPT Codes CPT Codes: ANESTH KNEE JOINT SURGERY - 84595 ([id number]) P2 - PATIENT W/MILD SYST DISEASE, QK - PSYCHOLOGY INTERN 2-4 CNCRNT ANES PROC, QX - OIL PROCESSING TECHNICIAN SVC W/ MD MED DIRECTION
--- NOTE | 2025-03-10 10:44 | P.ANES_ITS ---
Anesthesia Charges Start Date/Time Anesthesia Start Date: 03/10/25 Anesthesia Start Time: 09:46 Stop Date/Time Anesthesia Stop Date: 03/10/25 Anesthesia Stop Time: 10:42 Coding CPT Codes CPT Codes: ANESTH KNEE JOINT SURGERY - 00402 ([id number]) QK - HI RANGER OPERATOR 2-4 CNCRNT ANES PROC, QX - EDGE WORKER SVC W/ MD MED DIRECTION, P2 - PATIENT W/MILD SYST DISEASE
--- NOTE | 2025-03-10 10:44 | W.ANESCHARGE ---
Anesthesia Charges Start Date/Time Anesthesia Start Date: 03/10/25 Anesthesia Start Time: 09:46 Stop Date/Time Anesthesia Stop Date: 03/10/25 Anesthesia Stop Time: 10:42 Coding CPT Codes CPT Codes: ANESTH KNEE JOINT SURGERY - 67190 ([id number]) QK - OVERHAULER BUS TRUCK 2-4 CNCRNT ANES PROC, QX - RETAIL CLIENT SOLUTIONS CONSULTANT SVC W/ MD MED DIRECTION, P2 - PATIENT W/MILD SYST DISEASE
[2025-03-10] MEDS: LACTATED RINGERS 1000 ML 1,000 ML 100 ML IV (10:47)
== END 2025-03-10 12:40 | disposition home or self-care (01) ==
LOC: OR 07:12
PROVIDERS: Anesthesiology; PCP Nurse Practitioner Family; Visit Provider Orthopaedic Surgery Sports Medicine
PROC: (CPT 29870; principal; 2025-03-10 09:00)
DX: M94.261 Chondromalacia, right knee (principal); S82.141D Displaced bicondylar fracture of right tibia, subsequent encounter for closed fracture with routine healing
CPT/HCPCS: 29877; 01400; 81025; J0690; J1100; J2250; J2405; J2704; J2795; J3010; J7120